=== PATIENT | female | born 1970 | race Caucasian/White ===

== ENCOUNTER 2025-01-26 08:58 | Inpatient (IN) | payer MEDICAID, SELFPAY ==
[2025-01-26] VITALS (147 sets, daily range): BP systolic 70–184; BP diastolic 48–104; PULSE 67–140; RESP 12–97; TEMP 36.6–37.1; O2SAT 89–100; BMI 50.6
--- NOTE | 2025-01-26 09:06 | XR_ITS ---
Exam: Chest AP single view Technique: AP portable upright chest single view 01/26/2025 957 am Indications: stroke alert, SOB today Findings: Normal heart size. No aspiration pneumonia No pulmonary edema. Moderate osteopenia Impression: Negative for aspiration pneumonia
--- NOTE | 2025-01-26 09:06 | EKG_ITS ---
[facility] Test Date: 2025-01-26 Pat Name: AROLDO PABON Department: Room: - Gender: Female Emergency Spill Response Technician: : 1970 Requested By: Beatris Cruz Order Number: [id number] Reading MD: Beatris Cruz Measurements Intervals [place] Rate: 80 P: 249 VA: 125 QRS: 8 QRSD: 86 T: 37 QT: 201 QTc: 232 Interpretive Statements JUNCTIONAL RHYTHM LOW QRS VOLTAGE IN PRECORDIAL LEADS [QRS DEFLECTION < 1.0 mV IN CHEST LEADS] POSSIBLE RIGHT VENTRICULAR CONDUCTION DELAY [RSR (QR) IN V1/V2] NONSPECIFIC ST & T-WAVE ABNORMALITY ABNORMAL RHYTHM ECG No previous ECG available for comparison /[id number]/S0/[id number].pdf
--- NOTE | 2025-01-26 09:06 | XR_ITS ---
Examination: CT brain head without contrast. 2-D sagittal coronal reconstructions Date and time of exam:01/26/2025 Indications Stroke alert CTDI: vol (mGy):71 DLP: (mGycm):1465 Technique: Multiple CT axial sections of the brain have been obtained, 5 mm slice thickness. Contrast has not been administered. 2-D sagittal, coronal reconstructions have been obtained Low dose protocols were performed. One or more of the following dose reduction techniques were used; automated exposure control, adjustment of the mA and/or KV according to patient size, use of iterative reconstruction technique. Findings: No significant ventricular enlargement. Intra-axial or extra-axial hemorrhage density is not seen. No mass effect or midline shift Basal cisterns are not remarkable. Fourth ventricle is midline. Cranial vault intact. Impression: Negative for acute hemorrhage, mass effect or midline shift
--- NOTE | 2025-01-26 09:06 | XR_ITS ---
Examination: CTA carotids with intravenous contrast CTA brain, head with intravenous contrast. 2-D sagittal, coronal reconstructions. 3-D reconstructions. Exam date and time: 01/26/2025 0926 hrs Indications: stroke alert today CTDI: vol (mGy) 20.8 DLP: (mGycm) 449 Technique: Multiple CTA axial brain, head carotid images post intravenous contrast injection 100 cc, [id number]. 2-D sagittal, coronal reconstructions. 3-D reconstructions, 3-D post processing including vascular maximum intensity projection images. Low dose protocols were performed. One or more of the following dose reduction techniques were used; automated exposure control, adjustment of the mA and/or KV according to patient size, use of iterative reconstruction technique. Findings: No significant carotid or vertebral artery stenoses in the neck Mildly dominant left vertebral artery. No cerebral large vessel arterial occlusions or thrombus. Impression: No significant neck arterial stenoses. No cerebral arterial large vessel occlusions or thrombus
--- NOTE | 2025-01-26 09:23 | PC.NURSE ---
PATIENT CAME IN TO ED THROUGH LOBBY FOR FEELING LIKE SHE IS IN A FOG ALL MORNING . PER PATIENT'S PARTNER SHE WAS LAST HER NORMAL SELF LAST NIGHT. PATIENT STATES SHE HAS FEELING OF WEAKNESS ON HER LEFT ARM AND SHE DOESN'T FEEL RIGHT. PATIENT WAS TAKEN TO CT SCAN RIGHT AWAY AFTER STROKE ALERT WAS INITIATED. PATIENT ALERT AND ORITNETED X4. VITALS STABLE. PATIENT HAS HISTORY OF DOUBLE MASTECTOMY FROM BREAST CANCER, AND HYPERTENSION.
[2025-01-26 09:32] LABS: Basophils # (Auto) 0.0 Thou/mm3 (0.0-0.2); Basophils % (Auto) 0 % (0-2.5); Eosinophils # (Auto) 0.0 Thou/mm3 (0.0-0.5); Eosinophils % (Auto) 0 % (0-10); Hematocrit 38.7 % (36.0-46.0); Hemoglobin 13.5 g/dL (12.0-16.0); Immature Granulocytes Auto 0.06 Thou/mm3 (0.00-0.00); Lymphocytes # (Auto) 1.3 Thou/mm3 (1.0-4.8); Lymphocytes % (Auto) 16 % (10-50); Mean Corpuscular HGB Conc 34.9 g/dl (31.0-37.0); Mean Corpuscular Hemoglobin 29.1 pg (25.0-35.0); Mean Corpuscular Volume 83 fL (80-100); Monocytes # (Auto) 0.7 Thou/mm3 (0.0-0.8); Monocytes % (Auto) 9 % (0-12); Neutrophils # (Auto) 6.1 Thou/mm3 (1.8-7.7); Neutrophils % (Auto) 75 % (37-80); Nucleated Red Blood Cell # 0.00 Thou/mm3 (0.00-0.00); Nucleated Red Blood Cell % 0 /100 WBC (0); Platelet Count 150 Thou/mm3 (140-440); RDW Standard Deviation 46.2 fL (36.4-46.3); Red Blood Count 4.64 Miln/mm3 (4.00-5.20); White Blood Count 8.2 Thou/mm3 (3.6-11.0)
[2025-01-26 09:44] LABS: INR 1.1 (0.9-1.3); Partial Thromboplastin Time 25.9 Seconds (22.0-36.0); Prothrombin Time 12.0 Seconds (9.0-12.2)
--- NOTE | 2025-01-26 09:45 | PD.TNEURO ---
Tele Neuro Consultation Consultation Date 01/26/25 Most Recent Vital Signs Last Vital Signs Pulse 93 01/26/25 09:21 Resp 22 H 01/26/25 09:15 BP 137/94 H 01/26/25 09:15 Pulse Ox 98 01/26/25 09:15 O2 Del Method Room Air 01/26/25 09:15 Laboratory-Coagulation Panel PT 12.0 Seconds (9.0-12.2) 01/26/25 09:18 INR 1.1 (0.9-1.3) 01/26/25 09:18 APTT 25.9 Seconds (22.0-36.0) 01/26/25 09:18 Consultation Narrative [facility] Patient Name:???AROLDO PABON Date of :???1970 Identification Number:??? Date of Service:???01/26/2025 09:04:08 Diagnosis:?R20.2 - Paresthesia of skin Impression: ?She reported some numbness in her left hand that she gets sometimes but not currently present. No focal deficits on exam and overall non-descript presentation. Recommend outpatient evaluation of the chronic intermittent paresthesias of her left hand. Further work up for infectious or metabolic cause of the foggy feeling per primary team. Sign Out: ? Discussed with Emergency Department Provider Advanced Imaging: CTA Head and Neck Completed. LVO:No Patient is not a candidate for LIANG Metrics: Last Known Well: 01/25/2025 23:00:00 Dispatch Time: 01/26/2025 09:04:08 Arrival Time: 01/26/2025 08:58:00 Initial Response Time: 01/26/2025 09:07:06Symptoms: foggy. Initial patient interaction: 01/26/2025 09:30:08 NIHSS Assessment Completed: 01/26/2025 09:34:39Patient is not a candidate for Thrombolytic. Thrombolytic Medical Decision: 01/26/2025 09:34:40Patient was not deemed candidate for Thrombolytic because of following reasons: LKW outside 4.[address] Head: I personally reviewed all the CT images that were available to me and it showed: no acute process Primary Provider Notified of Diagnostic Impression and Management Plan on: 01/26/2025 09:40:23 History of Present Illness:Patient is a 54 year old Female. Patient was brought by private transportation with symptoms of foggy. 54 yo F with history of HTN and breast cancer who is presenting with foggy feeling. She was staring off into space. Per her partner, she had a blank stare on her face and she was having trouble getting up and was stumbling to the bathroom. She was having trouble breathing. She would respond but more slowly. He was last normal at 23:00 before. Per patient she feels like she's in a fog. Her left keeps going numb but that has happened before. She is having some back pain. She does not feel like she is having trouble communicating but she just doesn't feel right. She just doesn't feel right. She does not have any time that she can't remember. Her baseline she has been having some trouble doing daily activities. Past Medical History: ?Hypertension Other PMH:? breast cancer Medications: No Anticoagulant use? No Antiplatelet use Reviewed EMR for current medications Allergies:? NKDA Social History: Unable To Obtain Due To Patient Status :?Patient Cannot Communicate Relevant Social History Family History: There is no family history of premature cerebrovascular disease pertinent to this consultation ROS : 14 Points Review of Systems was performed and was negative except mentioned in HPI. Past Surgical History: There Is No Surgical History Contributory To Today?s Visit Examination: BP(137/94),?Pulse(88),?Blood Glucose(121) 1A: Level of Consciousness - Alert; keenly responsive?+ 0 1B: Ask Month and Age - Both Questions Right?+ 0 1C: Blink Eyes & Squeeze Hands - Performs Both Tasks?+ 0 2: Test Horizontal Extraocular Movements - Normal?+ 0 3: Test Visual Anne - No Visual Loss?+ 0 4: Test Facial Palsy (Use Grimace if Obtunded) - Normal symmetry?+ 0 5A: Test Left Arm Motor Drift - No Drift for 10 Seconds?+ 0 5B: Test Right Arm Motor Drift - No Drift for 10 Seconds?+ 0 6A: Test Left Leg Motor Drift - No Drift for 5 Seconds?+ 0 6B: Test Right Leg Motor Drift - No Drift for 5 Seconds?+ 0 7: Test Limb Ataxia (FNF/Heel-Allen) - No Ataxia?+ 0 8: Test Sensation - Normal; No sensory loss?+ 0 9: Test Language/Aphasia - Normal; No aphasia?+ 0 10: Test Dysarthria - Normal?+ 0 11: Test Extinction/Inattention - No abnormality?+ 0 NIHSS Score:?0 Pre-Morbid Modified Rojelio Scale: 1 Points = No significant disability despite symptoms; able to carry out all usual duties and activities Spoke with :?ED MD This consult was conducted in real time using interactive audio and video technology. Patient was informed of the technology being used for this visit and agreed to proceed. Patient located in hospital and provider located at home/office setting. Patient is being evaluated for possible acute neurologic impairment and high probability of imminent or life-threatening deterioration. I spent total of 40 minutes providing care to this patient, including time for face to face visit via telemedicine, review of medical records, imaging studies and discussion of findings with providers, the patient and/or family. Dr Myla Leung [facility] For Inpatient follow-up with [facility] physician please call [facility] at . As we are not an outpatient service for any post hospital discharge needs please contact the hospital for assistance. If you have any questions for the [facility] physicians or need to reconsult for clinical or diagnostic changes please contact us via [facility] at . Signature :Alberto Leung
[2025-01-26 09:50] LABS: HCG Titer if Positive Negative
[2025-01-26 09:51] LABS: Acetaminophen < 2.0 mcg/mL (10.0-20.0); Alanine Aminotransferase 18 U/L (10-49); Albumin, Serum 3.4 gm/dL (3.5-5.0); Albumin/Globulin Ratio 1.4 (1.2-2.2); Alkaline Phosphatase 80 U/L (46-116); Anion Gap 12 (7-16); Aspartate Amino Transferase 27 U/L (0-34); BUN/Creatinine Ratio 9 Ratio (12-20); Bilirubin,Total 0.9 mg/dL (0.3-1.2); Blood Urea Nitrogen 10 mg/dL (9-23); Calcium 8.4 mg/dL (8.3-10.6); Calcium (Corrected) 8.9 mg/dL (8.5-10.1); Carbon Dioxide 29.7 mMol/L (20.0-31.0); Chloride 77 mMol/L (98-107); Creatinine (Component) 1.1 mg/dL (0.6-1.3); Globulin 2.5 gm/dL (2.3-3.5); Glucose 112 mg/dL (74-106); Magnesium 1.6 mg/dL (1.6-2.6); Osmolality,Calculated 240 (275-295); Salicylate < 3.0 mg/dL; Total Protein 5.9 gm/dL (5.7-8.2); Troponin I < 0.020 ng/mL (0.0-0.045); eGFR > 60 See Note
[2025-01-26 09:54] LABS: Potassium 2.3 mMol/L (3.4-5.1); Sodium 119 mMol/L (136-145)
--- NOTE | 2025-01-26 09:58 | PC.NURSE ---
DR PRATER AND RESIDENT MADE AWARE OF PATIENT'S CMP LAB VALUES. PATIENT HAS SODUM OF 119, AND POTASSIUM 2.3 PATIENT PLACED ON SEIZURE PRECAUTIONS
--- NOTE | 2025-01-26 10:17 | XR_ITS ---
Examination: Venous duplex lower extremity sonogram, bilateral. Date and time of exam: January 26, 2025, 1257 hrs. Indications: Leg swelling this week. Technique: Multiple sonographic images of the deep venous system have been obtained. B-mode/2-D grayscale imaging of vascular structures and Doppler spectral analysis (waveforms) and color performed Both legs are examined. Findings: Deep venous systems do not demonstrate abnormal echogenicity. All visualized deep veins exhibit compressibility. All visualized deep veins exhibit augmentation. Impression: Negative for deep vein thrombosis
[2025-01-26] MEDS: POTASSIUM CHL 10 mEq IVPB 10 MEQ/100 ML BAG 100 MEQ IV ×10 (10:20→22:35)
[2025-01-26] MEDS: SODIUM CHLORIDE 0.9% 1000 ML 1,000 ML 100 ML IV (10:20)
--- NOTE | 2025-01-26 10:20 | PD.EDNEURO ---
Neuro Symptoms Deficit-RME/HPI General Chief Complaint: Neuro Symptoms/Deficit Stated Complaint: FEEL LIKE IN A FOG UPON WAKING TODAY Time Seen by Provider: 01/26/25 09:09 Source: patient and family (partner at bedside) Arrival date/time: 01/26/25 08:58 Mode of arrival: wheelchair RME / HPI RME / HPI Narrative: Ms. Carreno is a 54-year-old female with past medical history of hypertension, suspected congestive heart failure, hypothyroidism, breast cancer status post mastectomy, chronic active smoker and hypokalemia who presented to [facility] emergency department with a chief complaint of symptoms of dizziness. Patient reports that her symptoms, she feels foggy, reported that her last known well time was yesterday evening otherwise partner at bedside complains of patient being unsteady since yesterday, he also reported that patient had a blank stare on his face and was having difficulty ambulating. Patient did endorse difficulty word finding, and mild dysarthria was noted during triage and stroke alert called. Patient also smokes daily, has extensive smoking history, reports daily alcohol use in the form of beer drinks more than 4 cans every day, reports no history of withdrawals. Drank 6 cans of beer daily Stroke alert called in emergency department, NIHSS 0 teleneurology endorsed low suspicion of CVA and recommended metabolic workup. ED labs significant for sodium 119, potassium 2.3, chloride 77. Osmolality 240 Patient's vitals on presentation, blood pressure normotensive 137/94, patient noted to have significant hypotension, lactate elevated at 2.3, patient will be started on Levophed, nephrology was consulted recommended normal saline maintenance fluid 100 cc/h, potassium replaced in the emergency department. Arterial line placed for noninvasive blood pressure monitoring. Related Data Home Medications ?Medication ?Instructions ?Recorded ?Confirmed benazepril 40 mg tablet 40 mg PO DAILY 01/27/25 01/27/25 furosemide 40 mg tablet 40 mg PO DAILY 01/27/25 01/27/25 levothyroxine 75 mcg tablet 75 mcg PO DAILY 01/27/25 01/27/25 metoprolol tartrate 50 mg tablet 50 mg PO BID 01/27/25 01/27/25 potassium chloride 8 mEq 8 meq PO DAILY 01/27/25 01/27/25 capsule,extended release Previous Rx's ?Medication ?Instructions ?Recorded gabapentin 300 mg capsule 300 mg PO HS #7 caps 01/30/25 naltrexone 50 mg tablet 50 mg PO QDAY 15 days #15 tabs 01/30/25 Allergies Allergy/AdvReac Type Severity Reaction Status Date / Time No Known Allergies Allergy Verified 01/26/25 09:01 Review of Systems Review of Systems Narrative Review of Systems: ROS: -CONSTITUTIONAL: Denies weight loss, fever and chills. Endorses dizziness. -HEENT: Denies changes in vision and hearing. -RESPIRATORY: Denies SOB and cough. -CV: Denies palpitations and Chest Pain. -GI: Denies abdominal pain, nausea, vomiting,constipation and diarrhea. -: Denies dysuria and urinary frequency. -MSK: Denies myalgia and joint pain. -SKIN: Denies rash and pruritus. -NEUROLOGICAL: Denies headache and syncope. -PSYCHIATRIC: Denies recent changes in mood. Denies anxiety and depression. Past Medical History Past Medical History Comments PMH COMMENT: PMH: Positive for hypertension, suspected congestive heart failure, hypothyroidism, breast cancer status post mastectomy and hypokalemia PSHx: Bilateral mastectomy Allergies: No known allergies Social history: -Smoking: Positive active smoker -Alcohol Use: Positive for daily alcohol use, drank 6 beers yesterday night -Illicit Drug Use: Denies Family History: No related family history ED Exam Narrative Physical exam: Physical Exam General: Awake and tired. Morbidly obese, conversational and non-toxic appearing. HEENT: Normocephalic, atraumatic, mucous membranes moist. Heart: Regular rate and rhythm, no murmurs. Lungs: Clear to auscultation with no wheezing or crackles. Limited breath sounds due to body habitus. Abdomen: Soft, obese, nondistended, nontender, positive bowel sounds. ?No guarding or rebound tenderness. Neurologic: Alert and oriented x3, no gross neurological deficit, and patient able to move all 4 extremities. Extremities: Trace bilateral lower extremity edema Skin: No rash or ecchymoses. Striae noted, excessive hair growth noted as well. Course Course Course Narrative: During the ED course patient noted to be hypotensive on manual blood pressure cuff, lactate was elevated at 2.4, variable readings on the blood pressure cuff. Patient started on Levophed, arterial line placed for closer blood pressure monitoring. Quality Measures none Orders Category Date Time Status Bedside Blood Glucose NOW Care 01/26/25 09:06 Completed COVID-19 Screening Questionnaire NOW Care 01/26/25 12:[address] Screening NOW Care 01/26/25 10:16 Completed Wheelchair Rental Clerk NOW Care 01/26/25 09:06 Completed Continuous Pulse Oximetry NOW Care 01/26/25 09:06 Completed Decision to Admit X1 Care 01/26/25 12:49 Completed EKG (ED ONLY) *Do not use* NOW Care 01/26/25 09:06 Completed Fluid restriction QDAY Care 01/26/25 09:59 Completed Wells [Urinary Catheter] QS Care 01/26/25 10:00 Completed In and Out Catheter NEEDED Care 01/26/25 09:06 Completed Insert IV NOW Care 01/26/25 09:06 Completed NIH Stroke Scale now Care 01/26/25 09:06 Completed NPO NOW Care 01/26/25 09:06 Completed Neuro Check Q4H Care 01/26/25 09:06 Completed Nurse Swallow Screen x1 Care 01/26/25 09:06 Completed Seizure precautions NOW Care 01/26/25 09:56 Completed Consult to Nephrology Stat Cons 01/26/25 10:04 Ordered Consult to Neurology / Tele-Neurology Stat Cons 01/26/25 09:[address] angio chest Stat Exams 01/26/25 10:[address] angio stroke protocol Stat Exams 01/26/25 09:[address] stroke protocol Stat Exams 01/26/25 09:06 Completed EKG (ED Only) Stat Exams 01/26/25 09:06 Draft US venous doppler LE BI Stat Exams 01/26/25 10:17 Completed XR chest 1V portable Stat Exams 01/26/25 09:06 Completed Acetaminophen Stat Lab 01/26/25 09:18 Completed Ammonia Stat Lab 01/26/25 10:22 Completed BNP [B-Type Natriuretic Peptide] Stat Lab 01/26/25 09:18 Completed CBC Stat Lab 01/26/25 09:18 Completed CK [Creatine Kinase] Stat Lab 01/26/25 09:55 Completed Comprehensive Metabolic Panel Stat Lab 01/26/25 09:18 Completed Cortisol,total,LC/MS/MS* Stat Lab 01/26/25 10:22 Received Creatinine,Random Urine Stat Lab 01/26/25 09:55 Completed Drug Screen,Urine Stat Lab 01/26/25 09:55 Completed Electrolytes, Urine Random Stat Lab 01/26/25 09:55 Completed Free T4 (Free Thyroxine) Stat Lab 01/26/25 09:55 Completed HCG Titer if Positive Stat Lab 01/26/25 09:18 Completed HCG,Qualitative Serum Stat Lab 01/26/25 09:18 Completed Lactate (Lactic Acid) Stat Lab 01/26/25 10:22 Completed Lactic Acid, 3 HR Stat Lab 01/26/25 13:39 Completed Lipid Panel Stat Lab 01/26/25 09:55 Completed Magnesium Stat Lab 01/26/25 09:18 Completed Partial Thromboplastin Time Stat Lab 01/26/25 09:18 Completed Prothrombin Time with INR Stat Lab 01/26/25 09:18 Completed Renal Function Panel Q4H Lab 01/26/25 12:47 Completed Renal Function Panel Q4H Lab 01/26/25 16:25 Completed Renal Function Panel Q4H Lab 01/26/25 20:15 Completed Renal Function Panel Q4H Lab 01/27/25 00:28 Completed Renal Function Panel Q4H Lab 01/27/25 07:53 Completed Renal Function Panel Q4H Lab 01/27/25 12:07 Completed Renal Function Panel Q4H Lab 01/27/25 18:20 Completed Renal Function Panel Q4H Lab 01/27/25 21:16 Completed Renal Function Panel Q4H Lab 01/28/25 01:46 Completed Salicylate Stat Lab 01/26/25 09:18 Completed TSH [Thyroid Stimulating Hormone] Stat Lab 01/26/25 09:55 Completed Troponin I Stat Lab 01/26/25 09:18 Completed Urea Nitrogen, Random Urine Stat Lab 01/26/25 09:55 Completed Uric Acid Stat Lab 01/26/25 09:55 Completed Urinalysis, C/S if Indicated Stat Lab 01/26/25 09:55 Completed KCL 10% Liq UDC 15 ML Med 01/26/25 10:28 Discontinued 40 meq PO X1 ONE Norepinephrine/NS 16mg/250ml [Levophed in NS 16mg/250ml Med 01/26/25 10:12 Discontinued ] 16 mg in 250 ml IV .STK-MED Norepinephrine/NS 16mg/250ml [Levophed in NS 16mg/250ml Med 01/26/25 10:10 Discontinued ] 16 mg in 250 ml IV 0.05 mcg/kg/min POTASSIUM CHL 10 mEq IVPB [Kcl Ivpb] Med 01/26/25 09:59 Discontinued 10 meq in 100 ml IV Q1H Potassium Chloride [K-Dur] Med 01/26/25 09:58 Discontinued 40 meq PO X1 ONE Sodium Chloride 0.9% 1000 ml [Ns] 1,000 ml Med 01/26/25 10:08 Discontinued IV 100 mls/hr Oxygen Delivery NOW RT 01/26/25 09:06 Completed Vital Signs Vital signs: Vital Signs Pulse Rate 83 01/26/25 09:15 Respiratory Rate 22 H 01/26/25 09:15 Blood Pressure 137/94 H 01/26/25 09:15 Pulse Oximetry (%) 98 01/26/25 09:15 Oxygen Delivery Method Room Air 01/26/25 09:15 PROCEDURES: Arterial Line Time Out Performed: Yes Size (Gauge): 20 Technique Used: guide wire technique Post-Procedure: line sutured into place and dry sterile dressing placed Patient Tolerated Procedure: well and no complications Complications: none Site: right and radial Additional Comments: PROCEDURE SUMMARY: Surgical cap, mask, and sterile gown/gloves were worn throughout the procedure. The Right wrist was prepped using chlorhexidine scrub and draped in sterile fashion using a three quarter sheet drape. The radial pulse was identified and the wrist was positioned in the usual fashion. Lidocaine used for local anesthesia. Using the Arrow Radial Arterial Line Kit, a needle was inserted into the radial artery. Arterial blood was seen to pulsate in the flash chamber. The internal guidewire was advanced easily into the radial artery. The catheter was then advanced over the wire and the needle and wire were withdrawn. The catheter was sutured in place. A sterile tape was placed over the catheter at the insertion site. The patient tolerated the procedure without any hemodynamic compromise. At the time of procedure completion, the catheter was connected to the quality assurance monitor body and calibrated. Appropriate waveform and blood pressure tracing was observed. Estimated blood loss is 2 mL. Procedure done under supervision of the attending emergency physician Dr Yennifer Suarez MD Neuro Symptoms / Deficit MDM Narrative MDM Narrative:: Patient p/w w/ weakness and transient difficulty speaking. VS and exam as listed. Stroke alert called in emergency department, NIHSS 0 teleneurology endorsed low suspicion of CVA and recommended metabolic workup. ED labs significant for sodium 119, potassium 2.3, chloride 77. Osmolality 240 Patient's vitals on presentation, blood pressure normotensive 137/94, however shortly thereafter patient noted to have significant hypotension, lactate elevated at 2.3. patient will be started on Levophed, nephrology was consulted recommended normal saline maintenance fluid 100 cc/h, potassium replaced in the emergency department given her hyponatremia. Arterial line placed for noninvasive blood pressure monitoring given her hypotension, edema, and critical state. #Symptomatic hypoosmolar hypochloremic hyponatremia #Hypokalemia DDx: Beer potomania, medication induced-Lasix/DREA/ARB Patient sodium 119,Potassium 2.3, chloride 77 on presentation, patient's symptom of dizziness and difficulty ambulating Nephrology consulted, started on maintenance fluid per nephrology recommendations, urine electrolytes and other urine studies ordered, uric acid cortisol, thyroid panel ordered Monitor renal panel every 4 hours, goal sodium correction 4-6 in 24 hours Potassium repleted, 80 mEq given, follow repeat potassium #Shock, undifferentiated #Hypotension #Elevated lactic acidosis Patient's MAP less than 65 multiple readings, arterial line placed for noninvasive blood pressure monitoring -no fever or localizing infectious symptoms. No chest pain or hx of heart disease. no trauma. Unclear source of shock at this point. - Levophed to titrate MAP greater than 65 - Follow-up lactate #Chronic intermittent paresthesias #CVA workup NIHSS 0, low suspicion of stroke per teleneurology Recommendations outpatient workup for chronic intermittent paresthesias and metabolic workup. #Daily alcohol use #Chronic active smoker Currently no concern of alcohol withdrawal, monitor closely. Case discussed with Attending Physician Dr. Yennifer Suarez MD Internal Medicine PGY-2 Disclaimer: This note was dictated by speech recognition. Minor errors in retail salesworker may be present due to voice recognition software. Patient data External records reviewed:: [facility] previous records Clinical information provided by:: patient and family Social determinants that could affect healthcare access:: alcohol use Patient has the following chronic illnesses:: hypertension, suspected congestive heart failure, hypothyroidism, breast cancer status post mastectomy, chronic active smoker, alcohol use and hypokalemia How is presenting disease/condition affected by chronic disease/condition?: exacerbated by Evaluation data The following diagnostics were reviewed and interpreted by me:: lab results, radiology exam(s) and EKG tracing(s) Lab and/or radiology exams considered but not ordered:: None Interpretation Summary: Patient CMP significant for severe hyponatremia which is symptomatic. CT scan of the head unremarkable, CTA head and neck unremarkable Medications / Prescriptions Medications or Prescriptions considered but not ordered:: None Medication administrations:: Medication Administration History Discontinued Medications Acetaminophen (Acetaminophen 500 Mg Tablet) 1,000 mg PO Q6HR PRN PRN Reason: pain 1-3 or fever >99.9 Stop: 02/26/25 18:26 Last Admin: 01/29/25 11:49 Dose: 1,000 mg Documented By: Admin: 01/28/25 11:01 Dose: 1,000 mg Documented By: TRACY Albuterol/Ipratropium (Albuterol/Ipratropium (Duoneb) Rt Deya 3 Ml Nebu) 3 ml INH Q6HRRT ROSALBA Stop: 02/25/25 18:59 Last Admin: 01/30/25 12:18 Dose: 3 ml Documented By: Admin: 01/30/25 06:33 Dose: 3 ml Documented By: Admin: 01/30/25 01:05 Dose: Not Given Documented By: PAULA Non-Admin Reason: Patient Refused Admin: 01/30/25 01:05 Dose: Not Given Documented By: PAULA Non-Admin Reason: Patient Refused Admin: 01/29/25 12:45 Dose: 3 ml Documented By: SC Admin: 01/29/25 06:51 Dose: 3 ml Documented By: SC Admin: 01/29/25 00:08 Dose: 3 ml Documented By: Admin: 01/28/25 18:41 Dose: 3 ml Documented By: Admin: 01/28/25 11:55 Dose: 3 ml Documented By: Admin: 01/28/25 06:11 Dose: 3 ml Documented By: Admin: 01/28/25 00:55 Dose: 3 ml Documented By: Admin: 01/27/25 19:13 Dose: 3 ml Documented By: Admin: 01/27/25 12:38 Dose: 3 ml Documented By: Admin: 01/27/25 06:43 Dose: 3 ml Documented By: Admin: 01/27/25 01:16 Dose: 3 ml Documented By: Admin: 01/26/25 19:12 Dose: 3 ml Documented By: PAULA Chlordiazepoxide HCl (Chlordiazepoxide Hcl 25 Mg Capsule) 25 mg PO Q8HR ROSALBA Stop: 02/01/25 16:59 Last Admin: 01/30/25 05:29 Dose: 25 mg Documented By: Admin: 01/29/25 20:59 Dose: 25 mg Documented By: Admin: 01/29/25 13:23 Dose: 25 mg Documented By: Admin: 01/29/25 05:49 Dose: 25 mg Documented By: Admin: 01/28/25 23:06 Dose: 25 mg Documented By: Admin: 01/28/25 13:28 Dose: 25 mg Documented By: Admin: 01/28/25 05:58 Dose: 25 mg Documented By: Admin: 01/27/25 21:27 Dose: 25 mg Documented By: Admin: 01/27/25 16:16 Dose: 25 mg Documented By: KERVIN Chlordiazepoxide HCl (Chlordiazepoxide Hcl 25 Mg Capsule) 25 mg PO BID ROSALBA Stop: 02/04/25 20:59 Desmopressin Acetate (Desmopressin Acetate 4 Mcg/Ml Vial) 4 mcg IV X1 ONE Stop: 01/26/25 14:16 Last Admin: 01/26/25 15:39 Dose: 4 mcg Documented By: JASWINDER Comments: Given late 2/T being ordered in the ED. Diazepam (Diazepam Inj 5 Mg/Ml Vial 2 Ml) 10 mg IVP Q1HR PRN PRN Reason: CIWA Stop: 01/31/25 14:00 Diazepam (Diazepam Inj 5 Mg/Ml Vial 2 Ml) 5 mg IVP Q2HR PRN PRN Reason: CIWA SCORE 14-19 Stop: 01/31/25 14:00 Last Admin: 01/27/25 13:16 Dose: 5 mg Documented By: MR(2) Admin: 01/27/25 10:47 Dose: 5 mg Documented By: Admin: 01/27/25 08:36 Dose: 5 mg Documented By: Admin: 01/27/25 04:56 Dose: 5 mg Documented By: Admin: 01/27/25 01:26 Dose: 5 mg Documented By: Admin: 01/26/25 23:00 Dose: 5 mg Documented By: NYLA Diazepam (Diazepam Inj 5 Mg/Ml Vial 2 Ml) 15 mg IVP Q15M PRN PRN Reason: RASS GREATER OR EQUAL TO +2 Stop: 01/31/25 14:00 Diazepam (Diazepam Inj 5 Mg/Ml Vial 2 Ml) 2.5 mg IVP Q2HR PRN PRN Reason: CIWA SCORE 8 to 13 Stop: 01/31/25 14:00 Diazepam (Diazepam Inj 5 Mg/Ml Vial 2 Ml) 5 mg IVP Q2HR PRN PRN Reason: CIWA SCORE 14-19 Stop: 02/01/25 15:50 Diazepam (Diazepam Inj 5 Mg/Ml Vial 2 Ml) 2.5 mg IVP Q2HR PRN PRN Reason: CIWA SCORE 8 to 13 Stop: 01/31/25 14:00 Last Admin: 01/29/25 09:17 Dose: 2.5 mg Documented By: Admin: 01/29/25 06:22 Dose: 2.5 mg Documented By: Admin: 01/29/25 01:12 Dose: 2.5 mg Documented By: Admin: 01/28/25 23:06 Dose: 2.5 mg Documented By: Admin: 01/28/25 20:22 Dose: 2.5 mg Documented By: MICHAEL Comments: Admin: 01/28/25 15:24 Dose: 2.5 mg Documented By: Admin: 01/28/25 11:06 Dose: 2.5 mg Documented By: Admin: 01/28/25 06:18 Dose: 2.5 mg Documented By: Admin: 01/27/25 23:17 Dose: 2.5 mg Documented By: Admin: 01/27/25 19:41 Dose: 2.5 mg Documented By: Admin: 01/27/25 16:16 Dose: 2.5 mg Documented By: KERVIN Diphenhydramine HCl (Diphenhydramine 25 Mg Capsule) 25 mg PO X1 ONE Stop: 01/27/25 23:02 Last Admin: 01/27/25 23:24 Dose: Not Given Documented By: ALFREDO Non-Admin Reason: pt refused Enoxaparin Sodium (Enoxaparin Sod Inj 40 Mg/0.4 Ml Syringe) 40 mg SC QDAY ROSALBA Stop: 02/09/25 13:59 Last Admin: 01/27/25 08:20 Dose: 40 mg Documented By: Admin: 01/26/25 14:28 Dose: 40 mg Documented By: VL Enoxaparin Sodium (Enoxaparin Sod Inj 40 Mg/0.4 Ml Syringe) 40 mg SC BID ROSALBA Stop: 02/10/25 20:59 Last Admin: 01/30/25 08:28 Dose: 40 mg Documented By: Admin: 01/29/25 20:59 Dose: 40 mg Documented By: Admin: 01/29/25 08:38 Dose: 40 mg Documented By: Admin: 01/28/25 23:08 Dose: 40 mg Documented By: Admin: 01/28/25 08:38 Dose: 40 mg Documented By: Admin: 01/27/25 21:27 Dose: 40 mg Documented By: ALFREDO Gabapentin (Gabapentin 100 Mg Capsule) 100 mg PO TID PRN PRN Reason: Neuropathic pain Stop: 02/28/25 15:44 Last Admin: 01/29/25 17:27 Dose: 100 mg Documented By: Guaifenesin (Guaifenesin Syrup 200 Mg/10 Ml Udc) 200 mg PO QID ROSALBA; Protocol Stop: 02/26/25 11:59 Last Admin: 01/30/25 12:13 Dose: Not Given Documented By: JAKI Non-Admin Reason: Patient Refused Admin: 01/30/25 05:29 Dose: 200 mg Documented By: Admin: 01/29/25 20:58 Dose: 200 mg Documented By: Admin: 01/29/25 17:27 Dose: 200 mg Documented By: Admin: 01/29/25 11:37 Dose: 200 mg Documented By: Admin: 01/29/25 05:49 Dose: 200 mg Documented By: Admin: 01/28/25 23:06 Dose: 200 mg Documented By: Admin: 01/28/25 16:40 Dose: 200 mg Documented By: Admin: 01/28/25 11:02 Dose: 200 mg Documented By: Admin: 01/28/25 05:57 Dose: 200 mg Documented By: Admin: 01/27/25 21:27 Dose: 200 mg Documented By: Admin: 01/27/25 16:16 Dose: 200 mg Documented By: Admin: 01/27/25 12:03 Dose: 200 mg Documented By: GE Potassium Chloride (Kcl Ivpb) 10 meq in 100 mls @ 100 mls/hr IV Q1H ROSALBA Stop: 01/26/25 13:58 Last Infusion: 01/27/25 11:35 Dose: Infused Documented By: Admin: 01/26/25 14:28 Dose: 100 mls/hr Documented By: Infusion: 01/26/25 14:00 Dose: Infused Documented By: Admin: 01/26/25 13:00 Dose: 100 mls/hr Documented By: Infusion: 01/26/25 12:53 Dose: Infused Documented By: Admin: 01/26/25 11:53 Dose: 100 mls/hr Documented By: Infusion: 01/26/25 11:20 Dose: Infused Documented By: Admin: 01/26/25 10:20 Dose: 100 mls/hr Documented By: VL Sodium Chloride (Ns) 1,000 mls @ 100 mls/hr IV .Q10H ROSALBA Stop: 02/25/25 10:07 Last Infusion: 01/27/25 11:35 Dose: Infused Documented By: Admin: 01/26/25 10:20 Dose: 100 mls/hr Documented By: VL Norepinephrine Bitartrate (Levophed In Ns 16mg/250ml) 16 mg in 250 mls @ 5.89 mls/hr IV .Q24H PRN; Protocol PRN Reason: PER protocol Stop: 02/25/25 10:09 Last Titration: 01/27/25 10:35 Dose: 0 mcg/kg/min, 0 mls/hr Documented By: Titration: 01/27/25 10:00 Dose: 0.01 mcg/kg/min, 1.178 mls/hr Documented By: Titration: 01/27/25 09:00 Dose: 0.01 mcg/kg/min, 1.178 mls/hr Documented By: Titration: 01/27/25 08:00 Dose: 0.03 mcg/kg/min, 3.534 mls/hr Documented By: Titration: 01/27/25 07:20 Dose: 0.03 mcg/kg/min, 3.534 mls/hr Documented By: Titration: 01/27/25 07:00 Dose: 0.05 mcg/kg/min, 5.89 mls/hr Documented By: Titration: 01/27/25 06:18 Dose: 0.05 mcg/kg/min, 5.89 mls/hr Documented By: Titration: 01/27/25 06:00 Dose: 0.03 mcg/kg/min, 3.534 mls/hr Documented By: Titration: 01/27/25 05:00 Dose: 0.03 mcg/kg/min, 3.534 mls/hr Documented By: Titration: 01/27/25 04:58 Dose: 0.03 mcg/kg/min, 3.534 mls/hr Documented By: Titration: 01/27/25 04:00 Dose: 0.05 mcg/kg/min, 5.89 mls/hr Documented By: Titration: 01/27/25 03:00 Dose: 0.05 mcg/kg/min, 5.89 mls/hr Documented By: Titration: 01/27/25 02:00 Dose: 0.05 mcg/kg/min, 5.89 mls/hr Documented By: Titration: 01/27/25 01:00 Dose: 0.05 mcg/kg/min, 5.89 mls/hr Documented By: Titration: 01/27/25 00:00 Dose: 0.05 mcg/kg/min, 5.89 mls/hr Documented By: Titration: 01/26/25 23:00 Dose: 0.05 mcg/kg/min, 5.89 mls/hr Documented By: Titration: 01/26/25 22:00 Dose: 0.05 mcg/kg/min, 5.89 mls/hr Documented By: Titration: 01/26/25 21:00 Dose: 0.05 mcg/kg/min, 5.89 mls/hr Documented By: Titration: 01/26/25 20:00 Dose: 0.05 mcg/kg/min, 5.89 mls/hr Documented By: Titration: 01/26/25 19:00 Dose: 0.05 mcg/kg/min, 5.89 mls/hr Documented By: Titration: 01/26/25 18:00 Dose: 0.03 mcg/kg/min, 3.534 mls/hr Documented By: Titration: 01/26/25 17:00 Dose: 0.03 mcg/kg/min, 3.534 mls/hr Documented By: Titration: 01/26/25 16:00 Dose: 0.03 mcg/kg/min, 3.534 mls/hr Documented By: Titration: 01/26/25 15:30 Dose: 0.03 mcg/kg/min, 3.534 mls/hr Documented By: Titration: 01/26/25 15:00 Dose: 0.05 mcg/kg/min, 5.89 mls/hr Documented By: Titration: 01/26/25 14:55 Dose: 0.05 mcg/kg/min, 5.89 mls/hr Documented By: Titration: 01/26/25 12:55 Dose: 0.07 mcg/kg/min, 8.245 mls/hr Documented By: Titration: 01/26/25 12:50 Dose: 0.07 mcg/kg/min, 8.245 mls/hr Documented By: Admin: 01/26/25 12:45 Dose: 0.05 mcg/kg/min, 5.89 mls/hr Documented By: VL Norepinephrine Bitartrate (Levophed In Ns 16mg/250ml) Confirm Administered Dose 16 mg in 250 mls @ ud IV .STK-MED ONE Stop: 01/26/25 10:13 Last Admin: 01/26/25 10:56 Dose: Not Given Documented By: VL Non-Admin Reason: Duplicate Medication on eMAR Sodium Chloride 500 ml/ IV (Miscellaneous Supplies) 500 mls @ 50 mls/hr IV X1 ONE Stop: 01/27/25 00:32 Last Infusion: 01/27/25 11:35 Dose: Infused Documented By: Admin: 01/26/25 15:39 Dose: 50 mls/hr Documented By: JASWINDER Comments: Given late 2/T being ordered in the ED. Potassium Chloride (Kcl Ivpb) 10 meq in 100 mls @ 100 mls/hr IV Q1H ROSALBA Stop: 01/26/25 23:05 Last Infusion: 01/27/25 11:35 Dose: Infused Documented By: Admin: 01/26/25 22:35 Dose: 100 mls/hr Documented By: Infusion: 01/26/25 22:18 Dose: Infused Documented By: Admin: 01/26/25 21:18 Dose: 100 mls/hr Documented By: Infusion: 01/26/25 21:11 Dose: Infused Documented By: Admin: 01/26/25 20:11 Dose: 100 mls/hr Documented By: Infusion: 01/26/25 20:08 Dose: Infused Documented By: Admin: 01/26/25 19:08 Dose: 100 mls/hr Documented By: Infusion: 01/26/25 19:08 Dose: Infused Documented By: Admin: 01/26/25 18:08 Dose: 100 mls/hr Documented By: Infusion: 01/26/25 18:08 Dose: Infused Documented By: Admin: 01/26/25 17:16 Dose: 100 mls/hr Documented By: JASWINDER Magnesium Sulfate (Magnesium Sulfate Ivpb) 2 gm in 50 mls @ 25 mls/hr IV X1 ONE Stop: 01/26/25 19:08 Last Infusion: 01/27/25 11:35 Dose: Infused Documented By: Admin: 01/26/25 17:16 Dose: 25 mls/hr Documented By: JASWINDER Magnesium Sulfate (Magnesium Sulfate Ivpb) 4 gm in 50 mls @ 12.5 mls/hr IV X1 ONE Stop: 01/27/25 00:23 Last Infusion: 01/27/25 11:35 Dose: Infused Documented By: Admin: 01/26/25 21:18 Dose: 12.5 mls/hr Documented By: NYLA Thiamine HCl 500 mg/ Sodium (Chloride) 105 mls @ 210 mls/hr IV TID ROSALBA Stop: 01/29/25 08:44 Last Admin: 01/29/25 05:49 Dose: 210 mls/hr Documented By: Infusion: 01/28/25 23:37 Dose: Infused Documented By: [email or web address] Admin: 01/28/25 23:07 Dose: 210 mls/hr Documented By: [email or web address] Infusion: 01/28/25 14:56 Dose: Infused Documented By: Admin: 01/28/25 14:26 Dose: 210 mls/hr Documented By: Infusion: 01/28/25 06:27 Dose: Infused Documented By: Admin: 01/28/25 05:57 Dose: 210 mls/hr Documented By: Infusion: 01/27/25 21:58 Dose: Infused Documented By: Admin: 01/27/25 21:28 Dose: 210 mls/hr Documented By: Infusion: 01/27/25 14:17 Dose: Infused Documented By: Admin: 01/27/25 13:47 Dose: 210 mls/hr Documented By: Infusion: 01/27/25 11:35 Dose: Infused Documented By: Admin: 01/27/25 09:13 Dose: 210 mls/hr Documented By: LUCIE Dextrose/Sodium Chloride (D5-1/2ns) 1,000 mls @ 999 mls/hr IV X1 ONE Stop: 01/27/25 10:00 Last Infusion: 01/27/25 11:35 Dose: Infused Documented By: Admin: 01/27/25 09:15 Dose: 999 mls/hr Documented By: LUCIE Potassium Phosphate (Pot Phos 15 Mmol In Ns 250 Ml) 15 mmol in 250 mls @ 62.5 mls/hr IV Q4H ROSALBA Stop: 01/27/25 18:21 Last Admin: 01/27/25 14:42 Dose: 62.5 mls/hr Documented By: Infusion: 01/27/25 14:42 Dose: Infused Documented By: Admin: 01/27/25 10:48 Dose: 62.5 mls/hr Documented By: LUCIE Lactated Ringer's (Lactated Ringers) 1,000 mls @ 999 mls/hr IV .Q1H1M ONE Stop: 01/27/25 14:34 Last Admin: 01/27/25 13:46 Dose: 999 mls/hr Documented By: LUCIE Magnesium Sulfate (Magnesium Sulfate Ivpb) 4 gm in 50 mls @ 12.5 mls/hr IV X1 ONE Stop: 01/29/25 12:48 Last Admin: 01/29/25 10:10 Dose: 12.5 mls/hr Documented By: MR Lorazepam (Lorazepam 0.5 Mg Tablet) 1 mg PO Q4HR PRN PRN Reason: CIWA SCORE 7-11 Stop: 01/31/25 14:00 Last Admin: 01/27/25 07:30 Dose: 1 mg Documented By: Admin: 01/26/25 19:35 Dose: 1 mg Documented By: NYLA Lorazepam (Lorazepam 0.5 Mg Tablet) 0.5 mg PO Q4HR PRN PRN Reason: CIWA 5-9 Stop: 02/03/25 10:28 Last Admin: 01/30/25 09:37 Dose: 0.5 mg Documented By: Admin: 01/30/25 05:29 Dose: 0.5 mg Documented By: Admin: 01/30/25 01:41 Dose: 0.5 mg Documented By: Admin: 01/29/25 11:49 Dose: 0.5 mg Documented By: MR Lorazepam (Lorazepam 0.5 Mg Tablet) 1 mg PO Q4HR PRN PRN Reason: 03-06 Stop: 02/03/25 10:28 Last Admin: 01/29/25 15:42 Dose: 1 mg Documented By: MR Lorazepam (Lorazepam 0.5 Mg Tablet) 2 mg PO Q4HR PRN PRN Reason: Stop: 02/03/25 10:28 Melatonin (Melatonin 3 Mg Tablet) 6 mg PO X1 ONE Stop: 01/27/25 23:28 Last Admin: 01/27/25 23:34 Dose: 6 mg Documented By: ALFREDO Melatonin (Melatonin 3 Mg Tablet) 6 mg PO X1 ONE Stop: 01/28/25 22:48 Last Admin: 01/28/25 23:08 Dose: 6 mg Documented By: MICHAEL Nicotine (Nicotine Patch 21 Mg/24 Hr Patch.Td24) 21 mg TOP QDAY ROSALBA Stop: 02/25/25 17:29 Last Admin: 01/30/25 08:27 Dose: 21 mg Documented By: Admin: 01/29/25 08:38 Dose: 21 mg Documented By: Admin: 01/28/25 08:38 Dose: 21 mg Documented By: Admin: 01/27/25 08:21 Dose: 21 mg Documented By: Admin: 01/26/25 17:36 Dose: 21 mg Documented By: JASWINDER Ondansetron HCl (Ondansetron Inj 2 Mg/Ml Inj 2 Ml) 4 mg IVP Q6HR PRN; Protocol PRN Reason: NAUSEA OR VOMITING Stop: 02/28/25 08:48 Last Admin: 01/29/25 09:17 Dose: 4 mg Documented By: MR Patiromer (Patiromer Calcium 8.4 Gm Packet) 8.4 gm PO X1 ONE Stop: 01/30/25 07:11 Patiromer (Patiromer Calcium 8.4 Gm Packet) 8.4 gm PO X1 ONE Stop: 01/30/25 08:02 Last Admin: 01/30/25 08:28 Dose: 8.4 gm Documented By: WG Potassium Chloride (Potassium Chloride 20 Meq Tabcr) 40 meq PO X1 ONE Stop: 01/26/25 09:59 Last Admin: 01/26/25 10:58 Dose: Not Given Documented By: VL Non-Admin Reason: Cancelled by Provider Potassium Chloride (Potassium Chloride 10% 20 Meq/15 Ml Udc) 40 meq PO X1 ONE Stop: 01/26/25 10:29 Last Admin: 01/26/25 10:49 Dose: 40 meq Documented By: EF Potassium Chloride (Potassium Chloride 20 Meq Tabcr) 40 meq PO X1 ONE Stop: 01/26/25 19:29 Last Admin: 01/26/25 20:21 Dose: Not Given Documented By: BB Non-Admin Reason: Unable to Swallow Potassium Chloride (Potassium Chloride 10% 20 Meq/15 Ml Udc) 40 meq GT X1 ONE Stop: 01/26/25 20:22 Last Admin: 01/26/25 21:30 Dose: 40 meq Documented By: BB Potassium Chloride (Potassium Chloride 10% 20 Meq/15 Ml Udc) 40 meq PO X1 ONE Stop: 01/27/25 08:15 Last Admin: 01/27/25 08:41 Dose: 40 meq Documented By: GE Potassium Chloride (Potassium Chloride 20 Meq Tabcr) 40 meq PO BIDWM ROSALBA Stop: 02/28/25 17:29 Last Admin: 01/29/25 17:27 Dose: 40 meq Documented By: MR Potassium Phos/Sodium Phos (Naph,[facility] Mbdb 1 Packet (1.5 Gm)) 1 packet PO X1 ONE Stop: 01/27/25 13:35 Last Admin: 01/27/25 13:47 Dose: 1 packet Documented By: GE Potassium Phos/Sodium Phos (Naph,[facility] Mbdb 1 Packet (1.5 Gm)) 2 packet PO X1 ONE Stop: 01/27/25 18:32 Last Admin: 01/27/25 21:27 Dose: 2 packet Documented By: SS Thiamine HCl (Thiamine Inj 100 Mg/Ml Vial 2 Ml) 500 mg IVP TID [facility] Stop: 02/26/25 08:29 Last Admin: 01/27/25 15:12 Dose: Not Given Documented By: DL Non-Admin Reason: Discontinued As Above Consultations Consultation(s) initiated? (list below): Yes Consultation #1 (Physician, Specialty, Details): Dr. Mesa, label tacker, symptomatic hypoosmolar euvolemic hyponatremia Nephrology recommends maintenance fluid NS 100 cc/h, urine electrolytes urine creatinine and BUN, uric acid, thyroid panel, cortisol. Renal panel every 4 hours. Time: 10:05 Diagnosis Neuro Differential Diagnosis: other Most likely diagnosis given after review of the tests above:: Patient's dizziness is secondary to severe hyponatremia which is symptomatic. Admission Indicated Admission indicated?: indicated Explain why admission is indicated or not indicated:: Patient will be admitted to intensive care unit as patient is in shock, undifferentiated requiring vasopressors. Fluid boluses avoided as patient is symptomatically hyponatremic for rapid correction. Admission Request Was there a request for admission?: Yes Admission Attestation Admission request attestation: Discussed case with [] from Hospitalist service regarding admission. Discussed patients ED course, exam findings, labs, and radiology results. The Hospitalist [agrees,declines] to accept the patient for admission. Disposition Plan Disposition Plan: Admit Critical Care Time Critical Care Time Critical Care Time: Yes Total Critical Care Time (min.): 80 Attestation: ?I spent 80 minutes of critical care time with this patient not including reportable procedures. There was an acute impairment of an organ system with a high probability of imminent or life threatening deterioration in the patient's condition. Interventions and changes required in the course of therapy are located in the chart. Time involved was spent in direct patient care, reviewing ancillary data, old records, consulting with decision makers, EMS, other doctors, giving orders and documenting. Discharge Plan Plan Patient Disposition: Admit Acute Care w/in Hospital Problem List Clinical Impression: Acute hyponatremia
[2025-01-26 10:25] LABS: Collection Type, Urine Clean Catch
[2025-01-26 10:29] LABS: Lactate (Lactic Acid) 2.3 mMol/L (0.4-2.0)
[2025-01-26 10:38] LABS: HCG,Qualitative Serum Negative
[2025-01-26 10:39] LABS: B-Type Natriuretic Peptide 46 pg/mL (0-100)
[2025-01-26] MEDS: POTASSIUM CHLORIDE 10% 20 MEQ/15 ML UDC 40 MEQ PO (10:49)
[2025-01-26 10:52] LABS: Ammonia < 10 uMol/L (11-32)
--- NOTE | 2025-01-26 11:04 | PC.NURSE ---
PATIENT'S BLOOD PRESSURE FLUCTUATING. PER RESIDENT BECKY AND DR. PRATER PATIENT WILL NEED ARTERIAL LINE AND POSSIBLY NEED TO START LEVOPHED DRIP. PATIENT MADE AWARE OF PLAN OF CARE, PATIENT IN AGREEMET WITH PLAN
[2025-01-26 11:10] LABS: Bacteria,Urine Rare; Bilirubin,Urine Negative (Negative); Blood,Urine Negative (Negative); Clarity,Urine Clear (Clear/Hazy); Color,Urine Yellow (Lt Yel-Yel); Culture Indicated,Urine Not Indicated; Glucose, Urine Negative (Negative); Hyaline Casts,Urine < 1 /hpf (0-1); Ketones,Urine Negative (Negative); Leukocyte Esterase,Urine Positive (Negative); Nitrite,Urine Negative (Negative); PH,Urine 5.5 (5.0-7.0); Protein,Urine Negative (Neg - Trace); RBC,Urine 4 /hpf (0-3); Specific Gravity,Urine 1.031 (1.001-1.035); Squamous Epithelial Cell,Urine < 1 /hpf (0-5); Urobilinogen,Urine 2.0 mg/dL (0.0-1.0); WBC,Urine 5 /hpf (0-5)
--- NOTE | 2025-01-26 11:23 | PC.NURSE ---
CONSENT SIGNED AND PATIENT AWARE OF PLAN FOR ARTERIAL LINE PLACEMENT TO RIGHT RADIAL ARTERY. DR. PRATER AND RESIDENT BECKY IN ROOM FOR PROCEDURE.
[2025-01-26 11:25] LABS: Amphetamine/Methamp Scrn,U Negative (Negative); Barbiturate Screen,Urine Negative (Negative); Benzodiazepines Screen,Urine Negative (Negative); Benzoylecgonine Screen, Ur Negative (Negative); Fentanyl Screen,Urine Negative (Negative); Opiate Screen,Urine Negative (Negative); THC Screen,Urine Negative (Negative)
[2025-01-26 11:27] LABS: Chloride,Urine Random < 20.0 mMol/L (55.0-125.0); Creatinine,Random Urine 110 mg/dL (30-125); Potassium,Urine Random 20 mMol/L (12-62); Sodium,Urine Random < 15.0 mMol/L (20.0-110.0); Urea Nitrogen, Random Urine 145.0 mg/dL (350.0-1000.0)
[2025-01-26] MEDS: Norepinephrine/NS 16mg/250ml 16 MG/250 ML BAG 5.89 MG IV (12:45)
[2025-01-26 13:00] LABS: Cardiac Risk Estimate 4.6 RATIO (3.7-5.6); Cholesterol 119 mg/dL (132-200); Creatine Kinase 115 U/L (34-171); Free T4 (Free Thyroxine) 1.40 ng/dL (0.89-1.76); HDL Cholesterol 26 mg/dL (40-60); LDL Cholesterol,Calculated 69 mg/dL (0-130); Thyroid Stimulating Hormone 4.92 uIU/mL (0.55-4.78); Triglycerides 122 mg/dL (30-150)
[2025-01-26 13:15] LABS: Uric Acid 8.0 mg/dL (3.1-7.8)
[2025-01-26 13:26] LABS: Reflex Lactate? Y
[2025-01-26 13:47] LABS: Lactic Acid, 3 HR 1.5 mMol/L (0.4-2.0)
[2025-01-26 13:57] LABS: Anion Gap 11 (7-16); Calcium 8.2 mg/dL (8.3-10.6); Carbon Dioxide 28.8 mMol/L (20.0-31.0); Chloride 79 mMol/L (98-107); Potassium 3.0 mMol/L (3.4-5.1)
--- NOTE | 2025-01-26 13:58 | ECHO_ITS ---
Transthoracic Echo Report Ht (in): 62 Wt (lb): 277 Exam Location: Echo Lab Status: Emergency Gis Software Developer: Kristina Narayan Indications: Procedure Performed: BP: 132 / 104 HR: MEASUREMENTS (Male / Female) Normal Values 2D ECHO LV Diastolic Diameter PLAX 3.7 cm 4.2 - 5.9 / 3.9 - 5.3 cm LV Systolic Diameter PLAX 2.7 cm IVS Diastolic Thickness 0.9 cm 0.6 - 1.0 / 0.6 - 0.9 cm LVPW Diastolic Thickness 1.1 cm 0.6 - 1.0 / 0.6 - 0.9 cm LV Relative Wall Thickness 0.5 LVOT Diameter 1.7 cm Aortic Root Diameter 3.4 cm LV Ejection Fraction MOD BP 47.9 % >= 55 % LV Ejection Fraction MOD 4C 50.5 % LV Ejection Fraction 4C AL 49.6 % LV Ejection Fraction MOD 2C 45.4 % LV Ejection Fraction 2C AL 43.4 % LA Volume Index 11.1 cm?/m? 16 - 28 cm?/m? DOPPLER AV Peak Velocity 201.0 cm/s AV Peak Gradient 16.2 mmHg AV Mean Gradient 8.0 mmHg AV Velocity Time Integral 33.9 cm LVOT Peak Velocity 165.0 cm/s LVOT Peak Gradient 10.9 mmHg LVOT Velocity Time Integral 28.1 cm AV Area Cont Eq vti 1.9 cm? AV Area Cont Eq pk 1.9 cm? MV Area PHT 5.5 cm? MR Peak Velocity 319.0 cm/s MR Peak Gradient 40.7 mmHg Mitral E Point Velocity 79.5 cm/s Mitral A Point Velocity 108.0 cm/s Mitral E to A Ratio 0.7 LV E' Lateral Velocity 13.9 cm/s Mitral E to LV E' Lateral Ratio 5.7 LV E' Septal Velocity 8.2 cm/s Mitral E to LV E' Septal Ratio 9.7 FINDINGS Left Ventricle Normal left ventricular size, wall thickness, systolic function with no obvious regional wall motion abnormalities. The ejection fraction is visually estimated at 55-60 %. There is grade I diastolic dysfunction of the left ventricle (impaired relaxation pattern). Right Ventricle The right ventricle is normal in size and systolic function. Left Atrium The left atrium is normal by two-dimensional, color flow and Doppler imaging with no structural abnormalities, no thrombus formation present. Right Atrium The right atrium is normal by two-dimensional imaging, color flow and Doppler imaging with no structural abnormalities, no thrombus formation present. Atrial Septum The interatrial septum appears normal with no evidence of a shunt. Aorta The aorta is normal by two-dimensional, color flow and Doppler interrogation. Mitral Valve The mitral valve is normal by two-dimensional, color flow and Doppler interrogation. Mild mitral regurgitation. Aortic Valve The aortic valve is trileaflet and normal by two-dimensional, color flow and Doppler interrogation. There is no significant aortic valve regurgitation. Tricuspid Valve The tricuspid valve is normal by two-dimensional, color flow and Doppler interrogation. There is no significant tricuspid valve regurgitation. Pulmonic Valve The pulmonic valve is not well visualized. There is no significant pulmonic valve regurgitation. Vessels Inferior vena cava not well visualized. Pericardium The pericardium is normal by two-dimensional imaging. There is no significant pericardial effusion. CONCLUSIONS Indication: EF assessment Normal LV size and wall thickness,estimated EF at 55-60 %. There is grade I diastolic dysfunction. The RV is normal in size and systolic function. Mild MR. Trace TR. Jenn Bonner (Electronically Signed) Final Date: 28 January 2025 09:18
[2025-01-26 14:00] LABS: Albumin, Serum 3.3 gm/dL (3.5-5.0); BUN/Creatinine Ratio 9 Ratio (12-20); Blood Urea Nitrogen 9 mg/dL (9-23); Calcium (Corrected) 8.8 mg/dL (8.5-10.1); Creatinine (Component) 1.0 mg/dL (0.6-1.3); Estimated Creatinine Clearance 82.5 mL/min (>60); Glucose 115 mg/dL (74-106); Osmolality,Calculated 240 (275-295); Phosphorous 4.0 mg/dL (2.4-5.1); eGFR > 60 See Note
[2025-01-26 14:20] LABS: Sodium 119 mMol/L (136-145)
[2025-01-26] MEDS: ENOXAPARIN SOD INJ 40 MG/0.4 ML SYRINGE SC (14:28)
--- NOTE | 2025-01-26 14:28 | ESHP_ITS ---
Documentation for date of: 01/26/25 [facility] History of Present Illness History of present illness: Zari Carreno is a 54-year-old F with a PMH of hypertension, suspected congestive heart failure, hypothyroidism, breast cancer status post bilateral- mastectomy, and significant ongoing smoking history who presented to the [facility] ED with a chief complaint of feeling foggy and just out of it and being unable to urinate. Patient reports that her current symptoms started last night and that her fogginess in particular has worsened since waking up this morning at 6 AM. She denies ever having a similar prior episode. She also complains of her hands and feet falling asleep intermittently but says that this has been an ongoing occurrence for her. Per ED note, patient's male partner reports that patient has also been unsteady with difficulty ambulating since yesterday and has had episodes of having a blank stare on their face. In the ED, vitals showed: BP 137/94 HR 83 RR 22 Temp 98.0 SpO2 98% on room air ED Course: CBC and coagulation panel were within normal limits. ABG showed alkalotic pH 7.45, normal pCO2 36, low PaO2 68, high HCO3 31, normal O2 saturation 95%, and high base excess 8. CMP showed severely low sodium 119, severely low potassium 2.3, severely low chloride 77, normal CO2 29.7, normal anion gap 12, low calculated osmolality 240, high lactic acid 2.3, high uric acid 8.0, borderline low magnesium 1.6, high TSH 4.92, normal free T4 1.40, and negative qualitative hCG. UA showed rare urine bacteria, urine specific gravity 1.031, and positive leukocyte esterase. It also showed normal random creatinine 110, low random sodium <15.0, normal random potassium 20, low random chloride <20.0, and low random urea nitrogen 145.0. UDS was negative. Imaging: Chest x-ray was negative for aspiration pneumonia. Head CT was negative for acute hemorrhage, mass effect, or midline shift. Head/neck CTA showed no significant neck arterial stenoses, no cerebral arterial large vessel occlusions, or thrombus. EKG showed junctional rhythm with low QRS voltage in precordial leads, possible right ventricular conduction delay, and nonspecific ST and T wave abnormality with QTc 232. Venous Doppler study was negative for deep vein thrombosis. In the ED, patient was given IV potassium chloride 10 mEq x5, 1 L IV NS maintenance fluid at 100 mL/h, p.o. potassium chloride 40 mEq, IV Levophed at 0.05 mcg/kg/min, SC enoxaparin 40 mg, IV desmopressin 4 mcg, 0.5 L IV NS maintenance fluid at 50 mL/h, IV magnesium sulfate 2 g, and topical nicotine patch. A stroke alert was called after patient was noticed to have dysarthria on exam and teleneurology was consulted. Patient's NIHSS score was 0 and teleneurology endorsed low suspicion of an acute infarct, recommending the pursuit of a metabolic workup instead. However, patient, whose blood pressure had been normotensive 137/94 upon admission, began having significant hypotension in the setting of elevated lactate 2.3, prompting her to be started on Levophed. Nephrology was consulted and they recommended NS maintenance fluid at 100 mL/h. Additionally, patient had an arterial line placed for noninvasive blood pressure monitoring along with repletion of her potassium. Patient was admitted for the work-up and management of undifferentiated shock requiring pressor support in the setting of severe hypoosmolar hyponatremia, severe hypokalemia, and severe hypochloremia. Review of Systems Review of Systems Narrative Review of Systems: CONSTITUTIONAL: Endorses dizziness ( fogginess ). Denies weight loss, fever and chills. HEENT: Denies changes in vision and hearing. RESPIRATORY: Endorses exertional shortness of breath. Denies new acute cough (endorses chronic dry cough she thinks is due to smoking). CV: Denies palpitations and Chest Pain. GI: Denies abdominal pain, nausea, vomiting, constipation and diarrhea. : Endorses difficulty urinating. Denies dysuria and urinary frequency. MSK: Denies myalgia and joint pain. SKIN: Denies rash and pruritus. NEUROLOGICAL: Endorses headache and peripheral neuropathy. Denies syncope. PSYCHIATRIC: Denies recent changes in mood. Denies anxiety and depression. Past Medical History Past Medical History Comments PMH COMMENT: PMH: hypertension, hypothyroidism, breast cancer PSH: Partial hysterectomy in 2006, some type of knee surgery in 2011, and double mastectomy around 2018 or 2019 (preceded by radiation and chemotherapy) Allergies: NKDA FH: Dad had stomach cancer. Mom had diabetes and uterine cancer. SH: Lives in [place] in a trailer house with boyfriend. Started drinking in her 30s and still drinks with an average of 6 to 10 cans of beer per night. Started smoking in her 30s and still smokes with an average of 3-1/4 packs/day. Denies recreational drug use history. Exam Vital Signs Temp Pulse Resp BP Pulse Ox O2 Del Method 98.7 F 78 18 119/70 97 Room Air 01/26/25 13:49 01/26/25 13:49 01/26/25 13:49 01/26/25 13:49 01/26/25 13:49 01/26/25 13:49 Narrative Exam General: Awake and tired. Morbidly obese, conversational and non-toxic appearing. Smells strongly of tobacco smoke. HEENT: Normocephalic, atraumatic, mucous membranes moist. Heart: Regular rate and rhythm, no murmurs. Lungs: Clear to auscultation with no wheezing or crackles. Limited breath sounds due to body habitus. Abdomen: Soft, obese, nondistended, nontender, positive bowel sounds. ?No guarding or rebound tenderness. Neurologic: Alert and oriented x3, no gross neurological deficit, and patient able to move all 4 extremities. Extremities: Trace bilateral lower extremity edema. Long toenails. Skin: No rash or ecchymoses. Striae noted, excessive hair growth noted on face as well. Results: Labs 01/27/25 05:12 01/27/25 07:53 Labs: Short CBC 01/26/25 Range/Units 09:18 WBC 8.2 (3.6-11.0) Thou/mm3 Hgb 13.5 (12.0-16.0) g/dL Hct 38.7 (36.0-46.0) % Plt Count 150 (140-440) Thou/mm3 BMP 01/26/25 01/26/25 09:18 12:47 Sodium 119 L* 119 L* Potassium 2.3 L* 3.0 L D Chloride 77 L* 79 L* Carbon Dioxide 29.7 28.8 BUN 10 9 Creatinine 1.1 1.0 Glucose 112 H 115 H Calcium 8.4 8.2 L Cardiac Enzymes 01/26/25 01/26/25 Range/Units 09:18 09:55 Total Creatine Kinase 115 (34-171) U/L Troponin I < 0.020 (0.0-0.045) ng/mL Liver Function 01/26/25 01/26/25 Range/Units 09:18 12:47 Total Bilirubin 0.9 (0.3-1.2) mg/dL AST 27 (0-34) U/L ALT 18 (10-49) U/L Alkaline Phosphatase 80 (46-116) U/L Albumin 3.4 L 3.3 L (3.5-5.0) gm/dL Urine 01/26/25 Range/Units 09:55 Urine Color Yellow (Lt Yel-Yel) Urine Clarity Clear (Clear/Hazy) Urine pH 5.5 (5.0-7.0) Ur Specific [place] 1.031 (1.001-1.035) Urine Protein Negative (Neg - Trace) Urine Glucose (UA) Negative (Negative) Quality Measures Quality Measures none Medications Home Medications and Allergies Allergies Allergy/AdvReac Type Severity Reaction Status Date / Time No Known Allergies Allergy Verified 01/26/25 09:01 Visit Medications Albuterol/Ipratropium (Albuterol/Ipratropium (Duoneb) Rt Deya 3 Ml Nebu) 3 ml INH Q6HRRT [facility] Stop: 02/25/25 18:59 Diazepam (Diazepam Inj 5 Mg/Ml Vial 2 Ml) 10 mg IVP Q1HR PRN PRN Reason: CIWA 20-25 Stop: 01/31/25 14:00 Diazepam (Diazepam Inj 5 Mg/Ml Vial 2 Ml) 5 mg IVP Q2HR PRN PRN Reason: CIWA SCORE 14-19 Stop: 01/31/25 14:00 Diazepam (Diazepam Inj 5 Mg/Ml Vial 2 Ml) 15 mg IVP Q15M PRN PRN Reason: RASS GREATER OR EQUAL TO +2 Stop: 01/31/25 14:00 Enoxaparin Sodium (Enoxaparin Sod Inj 40 Mg/0.4 Ml Syringe) 40 mg SC QDAY ROSALBA Stop: 02/09/25 13:59 Sodium Chloride (Ns) 1,000 mls @ 100 mls/hr IV .Q10H ROSALBA Stop: 02/25/25 10:07 Last Admin: 01/26/25 10:20 Dose: 100 mls/hr Norepinephrine Bitartrate (Levophed In Ns 16mg/250ml) 16 mg in 250 mls @ 5.89 mls/hr IV .Q24H PRN; Protocol PRN Reason: PER protocol Stop: 02/25/25 10:09 Last Titration: 01/26/25 12:55 Dose: 0.07 mcg/kg/min, 8.245 mls/hr Lorazepam (Lorazepam 0.5 Mg Tablet) 1 mg PO Q4HR PRN PRN Reason: CIWA SCORE 7-11 Stop: 01/31/25 14:00 Discontinued Medications Desmopressin Acetate (Desmopressin Acetate 4 Mcg/Ml Vial) 4 mcg IV X1 ONE Stop: 01/26/25 14:16 Potassium Chloride (Kcl Ivpb) 10 meq in 100 mls @ 100 mls/hr IV Q1H ROSALBA Stop: 01/26/25 13:58 Last Admin: 01/26/25 13:00 Dose: 100 mls/hr Potassium Chloride (Potassium Chloride 20 Meq Tabcr) 40 meq PO X1 ONE Stop: 01/26/25 09:59 Last Admin: 01/26/25 10:58 Dose: Not Given Potassium Chloride (Potassium Chloride 10% 20 Meq/15 Ml Udc) 40 meq PO X1 ONE Stop: 01/26/25 10:29 Last Admin: 01/26/25 10:49 Dose: 40 meq Assessment & Plan Plan Zari Carreno is a 54-year-old F with a PMH of hypertension, suspected congestive heart failure, hypothyroidism, breast cancer status post bilateral- mastectomy, and significant ongoing smoking history who presented to the [facility] ED with a chief complaint of feeling foggy and just out of it and being unable to urinate. A stroke alert was called after patient was noticed to have dysarthria on exam and teleneurology was consulted. Patient's NIHSS score was 0 and teleneurology endorsed low suspicion of an acute infarct, recommending the pursuit of a metabolic workup instead. However, patient, whose blood pressure had been normotensive 137/94 upon admission, began having significant hypotension in the setting of elevated lactate 2.3, prompting her to be started on Levophed. Nephrology was consulted and they recommended NS maintenance fluid at 100 mL/h. Additionally, patient had an arterial line placed for noninvasive blood pressure monitoring along with repletion of her potassium. Patient was admitted for the work-up and management of undifferentiated shock requiring pressor support in the setting of severe hypoosmolar hyponatremia, severe hypokalemia, and severe hypochloremia. NEURO #Metabolic encephalopathy #Stroke rule out DDx: Wernicke's encephalopathy Dx: -01/[address] was negative for acute hemorrhage, mass effect, or midline shift. -01/26 venous Doppler study was negative for deep vein thrombosis. -01/26 head/neck CTA was negative for significant neck arterial stenoses, cerebral arterial large vessel occlusions, or thrombus. Rx: -Treat electrolyte derangements and hypotension as mentioned below RRx: -Monitor for newly emergent focal neurological deficits #Alcohol use disorder Started drinking in her 30s and still drinks with an average of 6 to 10 cans of beer per night Rx: -CIWA protocol RRx: -Monitor for breakthrough alcohol withdrawal symptoms (especially seizures) CARDIO #Shock, undifferentiated #Hypotension #Elevated lactic acid Normotensive 137/94 upon admission, began having significant hypotension in the setting of elevated lactate 2.3, prompting her to be started on Levophed Lactic acid downtrended from 2.3 to 1.5 on 01/26 (same day as admission) Rx: -IV Levophed 0.05 mcg/kg/min -Strict I's & O's RRx: -Monitor blood pressure PULM No active problems GI No active problems NEPHRO #Symptomatic hypoosmolar hypochloremic hyponatremia #Hypokalemia DDx: Beer potomania, medication induced-Lasix/DREA/ARB Dx: -01/26 admission CMP showed sodium 119, potassium 2.3, chloride 77, normal CO2 29.7, normal anion gap 12, calculated osmolality 240. -01/26 UA showed urine specific gravity 1.031, normal random creatinine 110, low random sodium less than 15.0, normal random potassium 20, low random chloride less than 20.0, and low random urea nitrogen 145.0. Rx: -IV hypertonic 3% NS maintenance fluid @ 50 mL/hr with goal of 4-6 mEq increase q24HR until normalized -Fluid restriction 1500 mL qD -Renal panel q4HR RRx: -Follow up on renal panel URO No active problems HEME No active problems ENDO ID No active problems MSK No active problems OTHER #Chronic active smoker Started smoking in her 30s and still smokes with an average of 3-1/4 packs/day Disposition: ICU for pressor support DVT prophylaxis: SC Enoxaparin 40 mg qD GI prophylaxis: None Diet: NPO Wells: Present Lines: None Antibiotics: None CODE STATUS: FULL Patient plan of care was discussed with the attending certified bench jeweler technician, Dr. Junior. Jose Olivera DO Internal Medicine, PGY-1 Attending Provider Attestation/Addendum Patient seen and examined with above resident, Herve Olivera DO. I agree with the findings, assessment, and plan of care as documented separately differences below. Patient seen in the emergency department with multiple metabolic derangements and significant hypotension likely secondary to hypovolemia. Cautious fluid resuscitation secondary to severe hyponatremia with initial serum sodium of 119. Patient was given DDAVP and hypertonic saline with goal to maintain serum sodium between range 123-125 in the next 24 hours. After this point this will be in a safe range that she can be further increased. Will continue maintaining n.p.o. to avoid extraneous adjustments in her serum sodium. Continue to monitor gradually overnight. Arterial line will remain in place and with MAP of high 70s in the emergency department patient can probably have Levophed tapered off overnight. Patient also with significant alcohol use history is likely her presentation is related to beer potomania. Patient to be monitored closely in the ICU for the next 24 hours for potential superimposed alcohol withdrawal though the patient denies any previous history of this. Currently denies any tremors or hallucinations. Alcohol level negative. Her last drink was yesterday night prior to arrival in the ED this morning, multiple servings of beer every night historically. Total critical care time: Total critical care time: I personally spent 40 minutes for review of physiologic parameters, directing plan of care directly, coordination of care with other specialists, and counseling patient at bedside. This is exclusive of time spent teaching of staff performing separate billable procedures. Patient remains at significant risk for further morbidity and mortality warranting close monitoring care only available in the ICU. Critical care services required for severe hyponatremia, hypovolemic shock, alcohol withdrawal syndrome, beer potomania.
[2025-01-26 14:30] LABS: Base Excess 8 (-3-3); HCO3 31 mEq/L (20-26); Inspired Oxygen, FIO2 21 %; O2 Saturation 95 % (91-98); PCO2 36 mmHg (32.0-48.0); PO2 68 mmHg (83-108); pH, Arterial 7.54 (7.35-7.45)
[2025-01-26 14:31] LABS: Puncture Site Arterial Line
--- NOTE | 2025-01-26 14:38 | PC.NURSE ---
REPORT CALLED TO [facility]. NO FURTHER QUESTIONS. CALLED CT TO SEE IF THERE IS TIME TO TAKE PATIENT NOW FOR CT SCAN BEFORE PATIENT GOES UP TO ICU.
[2025-01-26] MEDS: DESMOPRESSIN ACETATE 4 MCG/ML VIAL IV (15:39)
[2025-01-26] MEDS: SODIUM CHLORIDE 3%(Hypertonic) 500 ML in PRE-MIXED 1 BAG 50 ML IV (15:39)
[2025-01-26 16:29] LABS: Alcohol, Blood Medical < 3.0 mg/dL (0-10.0)
[2025-01-26 17:01] LABS: Albumin, Serum 3.2 gm/dL (3.5-5.0); Anion Gap 11 (7-16); BUN/Creatinine Ratio 13 Ratio (12-20); Blood Urea Nitrogen 10 mg/dL (9-23); Calcium 8.0 mg/dL (8.3-10.6); Calcium (Corrected) 8.6 mg/dL (8.5-10.1); Carbon Dioxide 27.0 mMol/L (20.0-31.0); Chloride 82 mMol/L (98-107); Creatinine (Component) 0.8 mg/dL (0.6-1.3); Estimated Creatinine Clearance 103.1 mL/min (>60); Glucose 142 mg/dL (74-106); Osmolality,Calculated 243 (275-295); Phosphorous 3.2 mg/dL (2.4-5.1); Potassium 2.9 mMol/L (3.4-5.1); Sodium 120 mMol/L (136-145); eGFR > 60 See Note
[2025-01-26] MEDS: Magnesium Sulfate 2 GM Ivpb 2 GM/50 ML BAG IV (17:16)
[2025-01-26] MEDS: NICOTINE PATCH 21 MG/24 HR PATCH.TD24 TOP (17:36)
[2025-01-26] MEDS: ALBUTEROL/IPRATROPIUM (Duoneb) RT SOL 3 ML NEBU INH (19:12)
[2025-01-26 20:53] LABS: Albumin, Serum 3.1 gm/dL (3.5-5.0); Anion Gap 10 (7-16); BUN/Creatinine Ratio 15 Ratio (12-20); Blood Urea Nitrogen 9 mg/dL (9-23); Calcium 7.9 mg/dL (8.3-10.6); Calcium (Corrected) 8.6 mg/dL (8.5-10.1); Carbon Dioxide 26.3 mMol/L (20.0-31.0); Chloride 85 mMol/L (98-107); Creatinine (Component) 0.6 mg/dL (0.6-1.3); Estimated Creatinine Clearance 137.5 mL/min (>60); Glucose 137 mg/dL (74-106); Osmolality,Calculated 244 (275-295); Phosphorous 2.6 mg/dL (2.4-5.1); Potassium 3.1 mMol/L (3.4-5.1); Sodium 121 mMol/L (136-145); eGFR > 60 See Note
[2025-01-26] MEDS: Magnesium Sulfate 4 GM Ivpb 4 GM/50 ML BAG IV (21:18)
[2025-01-26] MEDS: POTASSIUM CHLORIDE 10% 20 MEQ/15 ML UDC 40 MEQ GT (21:30)
[2025-01-26] MEDS: DIAZEPAM INJ 5 MG/ML VIAL 2 ML IVP (23:00)
[2025-01-27] VITALS (162 sets, daily range): BP systolic 2–223; BP diastolic 2–212; PULSE 69–188; RESP 14–99; TEMP 36.2–37; O2SAT 93–100; BMI 50.6
[2025-01-27 00:55] LABS: Albumin, Serum 3.2 gm/dL (3.5-5.0); Anion Gap 8 (7-16); BUN/Creatinine Ratio 10 Ratio (12-20); Blood Urea Nitrogen 6 mg/dL (9-23); Calcium 7.8 mg/dL (8.3-10.6); Calcium (Corrected) 8.4 mg/dL (8.5-10.1); Carbon Dioxide 25.0 mMol/L (20.0-31.0); Chloride 90 mMol/L (98-107); Creatinine (Component) 0.6 mg/dL (0.6-1.3); Estimated Creatinine Clearance 137.5 mL/min (>60); Glucose 147 mg/dL (74-106); Osmolality,Calculated 248 (275-295); Phosphorous 1.9 mg/dL (2.4-5.1); Potassium 3.4 mMol/L (3.4-5.1); Sodium 123 mMol/L (136-145); eGFR > 60 See Note
[2025-01-27] MEDS: ALBUTEROL/IPRATROPIUM (Duoneb) RT SOL 3 ML NEBU INH ×4 (01:16→19:13)
[2025-01-27] MEDS: DIAZEPAM INJ 5 MG/ML VIAL 2 ML IVP ×5 (01:26→13:16)
[2025-01-27 06:39] LABS: Basophils # (Auto) 0.0 Thou/mm3 (0.0-0.2); Basophils % (Auto) 0 % (0-2.5); Eosinophils # (Auto) 0.0 Thou/mm3 (0.0-0.5); Eosinophils % (Auto) 0 % (0-10); Hematocrit 34.3 % (36.0-46.0); Hemoglobin 12.0 g/dL (12.0-16.0); Immature Granulocytes Auto 0.04 Thou/mm3 (0.00-0.00); Lymphocytes # (Auto) 0.8 Thou/mm3 (1.0-4.8); Lymphocytes % (Auto) 11 % (10-50); Mean Corpuscular HGB Conc 35.0 g/dl (31.0-37.0); Mean Corpuscular Hemoglobin 30.0 pg (25.0-35.0); Mean Corpuscular Volume 86 fL (80-100); Monocytes # (Auto) 0.5 Thou/mm3 (0.0-0.8); Monocytes % (Auto) 7 % (0-12); Neutrophils # (Auto) 5.6 Thou/mm3 (1.8-7.7); Neutrophils % (Auto) 80 % (37-80); Nucleated Red Blood Cell # 0.00 Thou/mm3 (0.00-0.00); Nucleated Red Blood Cell % 0 /100 WBC (0); Platelet Count 142 Thou/mm3 (140-440); RDW Standard Deviation 48.1 fL (36.4-46.3); Red Blood Count 4.00 Miln/mm3 (4.00-5.20); White Blood Count 7.0 Thou/mm3 (3.6-11.0)
[2025-01-27 07:29] LABS: Alanine Aminotransferase 15 U/L (10-49); Albumin, Serum 2.8 gm/dL (3.5-5.0); Albumin/Globulin Ratio 1.3 (1.2-2.2); Alkaline Phosphatase 75 U/L (46-116); Anion Gap 9 (7-16); Aspartate Amino Transferase 14 U/L (0-34); BUN/Creatinine Ratio 16 Ratio (12-20); Bilirubin,Total 0.8 mg/dL (0.3-1.2); Blood Urea Nitrogen 8 mg/dL (9-23); Calcium 7.5 mg/dL (8.3-10.6); Calcium (Corrected) 8.5 mg/dL (8.5-10.1); Carbon Dioxide 26.3 mMol/L (20.0-31.0); Chloride 92 mMol/L (98-107); Creatinine (Component) 0.5 mg/dL (0.6-1.3); Estimated Creatinine Clearance 165.0 mL/min (>60); Globulin 2.2 gm/dL (2.3-3.5); Glucose 129 mg/dL (74-106); Magnesium 2.4 mg/dL (1.6-2.6); Osmolality,Calculated 255 (275-295); Phosphorous 2.1 mg/dL (2.4-5.1); Potassium 3.3 mMol/L (3.4-5.1); Sodium 127 mMol/L (136-145); Total Protein 5.0 gm/dL (5.7-8.2); eGFR > 60 See Note
[2025-01-27] MEDS: ENOXAPARIN SOD INJ 40 MG/0.4 ML SYRINGE SC ×2 (08:20→21:27)
[2025-01-27] MEDS: NICOTINE PATCH 21 MG/24 HR PATCH.TD24 TOP (08:21)
--- NOTE | 2025-01-27 08:25 | PD.RESPRO ---
Documentation for date of: 01/27/25 Subjective Subjective Interval history: Zari Carreno is a 54-year-old F with a PMH of hypertension, suspected congestive heart failure, hypothyroidism, breast cancer status post bilateral-mastectomy, and significant ongoing smoking history who presented to the [facility] ED with a chief complaint of feeling foggy and just out of it and being unable to urinate. Patient reports that her current symptoms started last night and that her fogginess in particular has worsened since waking up this morning at 6 AM. She denies ever having a similar prior episode. She also complains of her hands and feet falling asleep intermittently but says that this has been an ongoing occurrence for her. Per ED note, patient's male partner reports that patient has also been unsteady with difficulty ambulating since yesterday and has had episodes of having a blank stare on their face. In the ED, vitals showed: BP 137/94 HR 83 RR 22 Temp 98.0 SpO2 98% on room air ED Course: CBC and coagulation panel were within normal limits. ABG showed alkalotic pH 7.45, normal pCO2 36, low PaO2 68, high HCO3 31, normal O2 saturation 95%, and high base excess 8. CMP showed severely low sodium 119, severely low potassium 2.3, severely low chloride 77, normal CO2 29.7, normal anion gap 12, low calculated osmolality 240, high lactic acid 2.3, high uric acid 8.0, borderline low magnesium 1.6, high TSH 4.92, normal free T4 1.40, and negative qualitative hCG. UA showed rare urine bacteria, urine specific gravity 1.031, and positive leukocyte esterase. It also showed normal random creatinine 110, low random sodium <15.0, normal random potassium 20, low random chloride <20.0, and low random urea nitrogen 145.0. UDS was negative. Imaging: Chest x-ray was negative for aspiration pneumonia. Head CT was negative for acute hemorrhage, mass effect, or midline shift. Head/neck CTA showed no significant neck arterial stenoses, no cerebral arterial large vessel occlusions, or thrombus. EKG showed junctional rhythm with low QRS voltage in precordial leads, possible right ventricular conduction delay, and nonspecific ST and T wave abnormality with QTc 232. Venous Doppler study was negative for deep vein thrombosis. In the ED, patient was given IV potassium chloride 10 mEq x5, 1 L IV NS maintenance fluid at 100 mL/h, p.o. potassium chloride 40 mEq, IV Levophed at 0.05 mcg/kg/min, SC enoxaparin 40 mg, IV desmopressin 4 mcg, 0.5 L IV NS maintenance fluid at 50 mL/h, IV magnesium sulfate 2 g, and topical nicotine patch. A stroke alert was called after patient was noticed to have dysarthria on exam and teleneurology was consulted. Patient's NIHSS score was 0 and teleneurology endorsed low suspicion of an acute infarct, recommending the pursuit of a metabolic workup instead. However, patient, whose blood pressure had been normotensive 137/94 upon admission, began having significant hypotension in the setting of elevated lactate 2.3, prompting her to be started on Levophed. Nephrology was consulted and they recommended NS maintenance fluid at 100 mL/h. Additionally, patient had an arterial line placed for noninvasive blood pressure monitoring along with repletion of her potassium. Patient was admitted for the work-up and management of undifferentiated shock requiring pressor support in the setting of severe hypoosmolar hyponatremia, severe hypokalemia, and severe hypochloremia. 01/27/2025: Overnight patient was given KCl 40 mEq IV x 1 and magnesium sulfate 4 g IV x 1. Sodium increased to 127 from 119. Input 968, output 1395, balance -426 cc in past 24 hours. This morning patient feels anxious and is tremulous. However she is A&O times 3 and no longer confused. Labs showed NA 127, K3.3, Phos 2.1, Mg 2.4. Scheduled Librium 25 mg p.o. Q8 hourly, D5/half NS 1 IVF bolus, KCl 40 mEq p.o. x 1, thiamine 500 mg IV 3 times daily and continue with 1200 cc fluid restriction. Exam Vital Signs Temp Pulse Resp BP Pulse Ox O2 Del Method 97.6 F 97 20 132/104 H 100 Room Air 01/27/25 04:00 01/27/25 06:44 01/27/25 06:44 01/26/25 15:06 01/27/25 06:44 01/26/25 13:49 Narrative Exam Constitutional Alert, oriented x 3 and anxious. Obese, middle-aged female HEENT Vision grossly intact. Patent nares. Trachea midline Respiratory Chest normal on inspection and scattered wheeze on auscultation throughout all lung [place] Cardiovascular S1 and S2 audible, RRR. No murmurs carotid bruit. No gross JVD. Abdominal Soft, obese and non tender to palpation in all quadrants. Umbilicus everted and rectus sheath diastasis. BS + Genitourinary No bladder tenderness, no flank pain. Normal to palpation Musculoskeletal Extremities tone within normal limits. No LE edema. Neurological CN II - XII grossly intact. Extremity motor and sensation grossly intact. NIHSS 0 Skin Warm, dry and intact. No apparent lesions. Psychiatric Patient has good affect, is cooperative Objective Labs 01/27/25 05:12 01/27/25 07:53 Labs: Laboratory Results - last 24 hr 01/26/25 01/26/25 01/26/25 09:18 09:55 10:22 WBC 8.2 RBC 4.64 Hgb 13.5 Hct 38.7 MCV 83 MCH 29.1 MCHC 34.9 RDW Std Deviation 46.2 Plt Count 150 Neut % (Auto) 75 Lymph % (Auto) 16 Stevens % (Auto) 9 Eos % (Auto) 0 Baso % (Auto) 0 Neut # (Auto) 6.1 Lymph # (Auto) 1.3 Stevens # (Auto) 0.7 Eos # (Auto) 0.0 Baso # (Auto) 0.0 Immature Gran # (Auto) 0.06 H Absolute Nucleated RBC 0.00 Immature Gran % 1 H Nucleated RBC % 0 PT 12.0 INR 1.1 APTT 25.9 Puncture Site ABG pH ABG pCO2 ABG pO2 ABG HCO3 ABG O2 Saturation ABG Base Excess FiO2 Sodium 119 L* Potassium 2.3 L* Chloride 77 L* Carbon Dioxide 29.7 Anion Gap 12 BUN 10 Creatinine 1.1 Estim Creat Clear Calc Not Performed. eGFR > 60 BUN/Creatinine Ratio 9 L Glucose 112 H Calculated Osmolality 240 L Lactic Acid 2.3 H Uric Acid 8.0 H Calcium 8.4 Corrected Calcium 8.9 Phosphorus Magnesium 1.6 Total Bilirubin 0.9 AST 27 ALT 18 Alkaline Phosphatase 80 Ammonia < 10 L Total Creatine Kinase 115 Troponin I < 0.020 B-Natriuretic Peptide 46 Total Protein 5.9 Albumin 3.4 L Globulin 2.5 Albumin/Globulin Ratio 1.4 Triglycerides 122 Cholesterol 119 L LDL Cholesterol, Calc 69 HDL Cholesterol 26 L Cholesterol/HDL Ratio 4.6 TSH 4.92 H Free T4 1.40 HCG, Qual Negative Ur Collection Type Clean Catch Urine Color Yellow Urine Clarity Clear Urine pH 5.5 Ur Specific [place] 1.031 Urine Protein Negative Urine Glucose (UA) Negative Urine Ketones Negative Urine Blood Negative Urine Nitrite Negative Urine Bilirubin Negative Urine Urobilinogen (Auto) 2.0 Ur Leukocyte Esterase Positive Urine RBC 4 H Urine WBC 5 Ur Squamous Epith Cells < 1 Urine Bacteria Rare Hyaline Casts < 1 Ur Culture Indicated? Not Indicated Ur Random Creatinine 110 Ur Random Sodium < 15.0 L Ur Random Potassium 20 Ur Random Chloride < 20.0 L Ur Random Urea Nitrogn 145.0 L Salicylates < 3.0 Urine Opiates Screen Negative Urine Fentanyl Screen Negative Acetaminophen < 2.0 L Ur Barbiturates Screen Negative U Amphetamin/Meth Scrn Negative U Benzodiazepines Scrn Negative U Cocaine Metab Screen Negative U Marijuana (THC) Screen Negative Ethyl Alcohol HCG (Qual) Negative 01/26/25 01/26/25 01/26/25 12:47 13:39 14:23 WBC RBC Hgb Hct MCV MCH MCHC RDW Std Deviation Plt Count Neut % (Auto) Lymph % (Auto) Stevens % (Auto) Eos % (Auto) Baso % (Auto) Neut # (Auto) Lymph # (Auto) Stevens # (Auto) Eos # (Auto) Baso # (Auto) Immature Gran # (Auto) Absolute Nucleated RBC Immature Gran % Nucleated RBC % PT INR APTT Puncture Site Arterial Line ABG pH 7.54 H ABG pCO2 36 ABG pO2 68 L ABG HCO3 31 H ABG O2 Saturation 95 ABG Base Excess 8 H FiO2 21 Sodium 119 L* Potassium 3.0 L D Chloride 79 L* Carbon Dioxide 28.8 Anion Gap 11 BUN 9 Creatinine 1.0 Estim Creat Clear Calc 82.5 eGFR > 60 BUN/Creatinine Ratio 9 L Glucose 115 H Calculated Osmolality 240 L Lactic Acid 1.5 Uric Acid Calcium 8.2 L Corrected Calcium 8.8 Phosphorus 4.0 Magnesium Total Bilirubin AST ALT Alkaline Phosphatase Ammonia Total Creatine Kinase Troponin I B-Natriuretic Peptide Total Protein Albumin 3.3 L Globulin Albumin/Globulin Ratio Triglycerides Cholesterol LDL Cholesterol, Calc HDL Cholesterol Cholesterol/HDL Ratio TSH Free T4 HCG, Qual Ur Collection Type Urine Color Urine Clarity Urine pH Ur Specific [place] Urine Protein Urine Glucose (UA) Urine Ketones Urine Blood Urine Nitrite Urine Bilirubin Urine Urobilinogen (Auto) Ur Leukocyte Esterase Urine RBC Urine WBC Ur Squamous Epith Cells Urine Bacteria Hyaline Casts Ur Culture Indicated? Ur Random Creatinine Ur Random Sodium Ur Random Potassium Ur Random Chloride Ur Random Urea Nitrogn Salicylates Urine Opiates Screen Urine Fentanyl Screen Acetaminophen Ur Barbiturates Screen U Amphetamin/Meth Scrn U Benzodiazepines Scrn U Cocaine Metab Screen U Marijuana (THC) Screen Ethyl Alcohol < 3.0 HCG (Qual) 01/26/25 01/26/25 01/27/25 16:25 20:15 00:28 WBC RBC Hgb Hct MCV MCH MCHC RDW Std Deviation Plt Count Neut % (Auto) Lymph % (Auto) Stevens % (Auto) Eos % (Auto) Baso % (Auto) Neut # (Auto) Lymph # (Auto) Stevens # (Auto) Eos # (Auto) Baso # (Auto) Immature Gran # (Auto) Absolute Nucleated RBC Immature Gran % Nucleated RBC % PT INR APTT Puncture Site ABG pH ABG pCO2 ABG pO2 ABG HCO3 ABG O2 Saturation ABG Base Excess FiO2 Sodium 120 L 121 L 123 L Potassium 2.9 L 3.1 L 3.4 Chloride 82 L 85 L 90 L Carbon Dioxide 27.0 26.3 25.0 Anion Gap 11 10 8 BUN 10 9 6 L Creatinine 0.8 0.6 0.6 Estim Creat Clear Calc 103.1 137.5 137.5 eGFR > 60 > 60 > 60 BUN/Creatinine Ratio 13 15 10 L Glucose 142 H 137 H 147 H Calculated Osmolality 243 L 244 L 248 L Lactic Acid Uric Acid Calcium 8.0 L 7.9 L 7.8 L Corrected Calcium 8.6 8.6 8.4 L Phosphorus 3.2 2.6 1.9 L Magnesium Total Bilirubin AST ALT Alkaline Phosphatase Ammonia Total Creatine Kinase Troponin I B-Natriuretic Peptide Total Protein Albumin 3.2 L 3.1 L 3.2 L Globulin Albumin/Globulin Ratio Triglycerides Cholesterol LDL Cholesterol, Calc HDL Cholesterol Cholesterol/HDL Ratio TSH Free T4 HCG, Qual Ur Collection Type Urine Color Urine Clarity Urine pH Ur Specific [place] Urine Protein Urine Glucose (UA) Urine Ketones Urine Blood Urine Nitrite Urine Bilirubin Urine Urobilinogen (Auto) Ur Leukocyte Esterase Urine RBC Urine WBC Ur Squamous Epith Cells Urine Bacteria Hyaline Casts Ur Culture Indicated? Ur Random Creatinine Ur Random Sodium Ur Random Potassium Ur Random Chloride Ur Random Urea Nitrogn Salicylates Urine Opiates Screen Urine Fentanyl Screen Acetaminophen Ur Barbiturates Screen U Amphetamin/Meth Scrn U Benzodiazepines Scrn U Cocaine Metab Screen U Marijuana (THC) Screen Ethyl Alcohol HCG (Qual) 01/27/25 05:12 WBC 7.0 RBC 4.00 Hgb 12.0 Hct 34.3 L MCV 86 MCH 30.0 MCHC 35.0 RDW Std Deviation 48.1 H Plt Count 142 Neut % (Auto) 80 Lymph % (Auto) 11 Stevens % (Auto) 7 Eos % (Auto) 0 Baso % (Auto) 0 Neut # (Auto) 5.6 Lymph # (Auto) 0.8 L Stevens # (Auto) 0.5 Eos # (Auto) 0.0 Baso # (Auto) 0.0 Immature Gran # (Auto) 0.04 H Absolute Nucleated RBC 0.00 Immature Gran % 1 H Nucleated RBC % 0 PT INR APTT Puncture Site ABG pH ABG pCO2 ABG pO2 ABG HCO3 ABG O2 Saturation ABG Base Excess FiO2 Sodium 127 L Potassium 3.3 L Chloride 92 L Carbon Dioxide 26.3 Anion Gap 9 BUN 8 L Creatinine 0.5 L Estim Creat Clear Calc 165.0 eGFR > 60 BUN/Creatinine Ratio 16 Glucose 129 H Calculated Osmolality 255 L Lactic Acid Uric Acid Calcium 7.5 L Corrected Calcium 8.5 Phosphorus 2.1 L Magnesium 2.4 Total Bilirubin 0.8 AST 14 ALT 15 Alkaline Phosphatase 75 Ammonia Total Creatine Kinase Troponin I B-Natriuretic Peptide Total Protein 5.0 L Albumin 2.8 L Globulin 2.2 L Albumin/Globulin Ratio 1.3 Triglycerides Cholesterol LDL Cholesterol, Calc HDL Cholesterol Cholesterol/HDL Ratio TSH Free T4 HCG, Qual Ur Collection Type Urine Color Urine Clarity Urine pH Ur Specific [place] Urine Protein Urine Glucose (UA) Urine Ketones Urine Blood Urine Nitrite Urine Bilirubin Urine Urobilinogen (Auto) Ur Leukocyte Esterase Urine RBC Urine WBC Ur Squamous Epith Cells Urine Bacteria Hyaline Casts Ur Culture Indicated? Ur Random Creatinine Ur Random Sodium Ur Random Potassium Ur Random Chloride Ur Random Urea Nitrogn Salicylates Urine Opiates Screen Urine Fentanyl Screen Acetaminophen Ur Barbiturates Screen U Amphetamin/Meth Scrn U Benzodiazepines Scrn U Cocaine Metab Screen U Marijuana (THC) Screen Ethyl Alcohol HCG (Qual) ABG Interpretation ABG results: 01/26/25 14:23 ABG pH 7.54 H ABG pCO2 36 ABG pO2 68 L ABG HCO3 31 H ABG O2 Saturation 95 ABG Base Excess 8 H Quality Measures Quality Measures none Assessment & Plan Assessment Current Active Medications: Generic Name Dose Route Start Last Admin Trade Name Freq PRN Reason Stop Dose Admin Albuterol/Ipratropium 3 ml 01/26/25 19:00 01/27/25 06:43 Albuterol/Ipratropium (Duoneb) Rt Deya 3 Ml Nebu INH 02/25/25 18:59 3 ml Q6HRRT ROSALBA Administration Diazepam 10 mg 01/26/25 14:01 Diazepam Inj 5 Mg/Ml Vial 2 Ml IVP 01/31/25 14:00 Q1HR PRN CIWA 20-25 Diazepam 5 mg 01/26/25 14:01 01/27/25 04:56 Diazepam Inj 5 Mg/Ml Vial 2 Ml IVP 01/31/25 14:00 5 mg Q2HR PRN Administration CIWA SCORE 14-19 Diazepam 15 mg 01/26/25 14:01 Diazepam Inj 5 Mg/Ml Vial 2 Ml IVP 01/31/25 14:00 Q15M PRN RASS GREATER OR EQUAL TO +2 Enoxaparin Sodium 40 mg 01/26/25 14:00 01/27/25 08:20 Enoxaparin Sod Inj 40 Mg/0.4 Ml Syringe SC 02/09/25 13:59 40 mg QDAY ROSALBA Administration Norepinephrine Bitartrate 16 mg in 250 mls @ 5.89 mls/hr 01/26/25 10:10 01/27/25 06:18 Levophed In Ns 16mg/250ml IV 02/25/25 10:09 0.05 mcg/kg/min .Q24H PRN 5.89 mls/hr PER protocol Titration Protocol 0.05 MCG/KG/MIN Lorazepam 1 mg 01/26/25 14:01 01/27/25 07:30 Lorazepam 0.5 Mg Tablet PO 01/31/25 14:00 1 mg Q4HR PRN Administration CIWA SCORE 7-11 Nicotine 21 mg 01/26/25 17:30 01/27/25 08:21 Nicotine Patch 21 Mg/24 Hr Patch.Td24 TOP 02/25/25 17:29 21 mg QDAY ROSALBA Administration Thiamine HCl 500 mg 01/27/25 08:30 Thiamine Inj 100 Mg/Ml Vial 2 Ml IVP 02/26/25 08:29 TID ROSALBA Plan Zari Carreno is a 54-year-old F with a PMH of hypertension, suspected congestive heart failure, hypothyroidism, breast cancer status post bilateral-mastectomy, and significant ongoing smoking history who presented to the [facility] ED with a chief complaint of feeling foggy and just out of it and being unable to urinate. A stroke alert was called after patient was noticed to have dysarthria on exam and teleneurology was consulted. Patient's NIHSS score was 0 and teleneurology endorsed low suspicion of an acute infarct, recommending the pursuit of a metabolic workup instead. However, patient, whose blood pressure had been normotensive 137/94 upon admission, began having significant hypotension in the setting of elevated lactate 2.3, prompting her to be started on Levophed. Nephrology was consulted and they recommended NS maintenance fluid at 100 mL/h. Additionally, patient had an arterial line placed for noninvasive blood pressure monitoring along with repletion of her potassium. Patient was admitted for the work-up and management of undifferentiated shock requiring pressor support in the setting of severe hypoosmolar hyponatremia, severe hypokalemia, and severe hypochloremia. NEURO #Acute metabolic encephalopathy?resolving #Stroke ruled out DDx: Symptomatic hyponatremia, Wernicke's encephalopathy Dx: -01/[address] was negative for acute hemorrhage, mass effect, or midline shift. -01/26 venous Doppler study was negative for deep vein thrombosis. -01/26 head/neck CTA was negative for significant neck arterial stenoses, cerebral arterial large vessel occlusions, or thrombus. Rx: -Treat electrolyte derangements and hypotension as mentioned below RRx: -Monitor for newly emergent focal neurological deficits #Alcohol withdrawal Started drinking in her 30s and still drinks with an average of 6 to 10 cans of beer per night Rx: - CIWA protocol ? Scheduled Librium 25 mg p.o. 3 times daily ? Thiamine 500 mg IV 3 times daily for 2 days followed by thiamine 200 mg IV for 5 days RRx: -Monitor for breakthrough alcohol withdrawal symptoms (especially seizures) CARDIO #Hypotension Normotensive 137/94 upon admission, began having significant hypotension in the setting of elevated lactate 2.3, prompting her to be started on Levophed Lactic acid downtrended from 2.3 to 1.5 on 01/26 (same day as admission) Rx: - continue to wean off Levophed ?D5/half NS 1L IVF bolus RRx: -Monitor blood pressure PULM #Chronic tobacco dependence DDx: Chronic bronchitis, COPD, emphysema, asthma Rx: DuoNebs scheduled Q6 hourly, nicotine patch GI No active problems NEPHRO # Hypoosmolar hypochloremic hyponatremia #Hypokalemia DDx: Beer potomania, medication induced-Lasix/DREA/ARB, gabapentin Dx: -01/26 admission CMP showed sodium 119, potassium 2.3, chloride 77, normal CO2 29.7, normal anion gap 12, calculated osmolality 240. -01/26 UA showed urine specific gravity 1.031, normal random creatinine 110, low random sodium less than 15.0, normal random potassium 20, low random chloride less than 20.0, and low random urea nitrogen 145.0. ? 01/27 NA 127, K3.3, Phos 2.1, Mg 2.4 Rx: - Renal panel q4HR ?1L D5/half NS IVF bolus ? KCl 40 mEq p.o. x 1 ? Continue 1200 cc/day fluid restriction RRx: -Follow up on renal panel URO No active problems HEME No active problems ENDO #Morbid obesity Dx: BMI 50.7 Rx: Recommend starting GLP agonist as outpatient and also possible bariatric surgery consultation. #Hypothyroidism Dx: TSH 4.96 Rx: Will resume home medication, pending reconciliation ID No active problems MSK No active problems ICU Health maintenance: Dispo: Na checks q4hrly, titrate levophed, CIWA. Possible downgrade to floor today Diet: TUbe feeds via OGT DVT ppx: Enoxaparin 40mg SC BID GI ppx: none IV lines: 2 pIV Central line: No Arterial line: No Wells: Yes (started 01/26/25- Code status: FULL CODE Plan of care discussed with Attending Dr. Vernon Obando MD PGY 2 Disclaimer: This note was dictated by speech recognition. Minor errors in service center manager may be present due to voice recognition software. Attending Provider Attestation/Addendum Patient seen and examined with above resident, Myron Obando MD. I agree with the findings, assessment, and plan of care as documented except for any differences below. Patient with significant improvement overnight with minimal vasopressor requirements at this point. She is undergoing some mild alcohol withdrawal but was appropriately treated with diazepam overnight. Started on taper of Librium to help smooth out agitation with as needed dosing intermittently available. Patient without any significant alcoholic hepatitis. Thiamine replacement also being given. Most notable, patient sodium slightly overcorrected this morning, will stop DDAVP but will provide free water to ensure that the patient remains within the goal of 4-6 mEq in 24 hours. Will touch base with nephrology as well consulted yesterday. Should the patient's serum sodium remain in the 120s which is a safer range, the patient can be transferred out to the floor once vasopressor requirements are done. I suspect that the patient continues to have intravascular depletion with pulse pressure ration of 22 seen on arterial catheter waveform this morning. However to avoid overcorrection of serum sodium will await for larger volume bolus with LR later on today for transferred to the medicine osman. DDAVP was stopped given limited urine output and will follow-up on urine output today to ensure that the patient does not have over rapid correction due to free water diuresis but she is now out of the significant range for development of central pontine myelinolysis. Patient counseled at bedside about alcohol use and associated beer potomania. Patient confirmed verbal understanding. Total critical care time: I personally spent 40 minutes review of physiologic parameters, directing plan of care throughout the day, coordination of care with other subspecialist, and counseling patient at bedside. This is exclusive of time spent teaching of staff performing separate billable procedures. Patient remains at significant risk for further morbidity and mortality warranting close monitoring and care only available in the ICU. Critical care services required for severe hyponatremia, alcohol withdrawal syndrome, hypovolemic shock, and acute metabolic encephalopathy.
[2025-01-27] MEDS: POTASSIUM CHLORIDE 10% 20 MEQ/15 ML UDC 40 MEQ PO (08:41)
[2025-01-27 09:01] LABS: Albumin, Serum 3.0 gm/dL (3.5-5.0); Anion Gap 9 (7-16); BUN/Creatinine Ratio 10 Ratio (12-20); Blood Urea Nitrogen 5 mg/dL (9-23); Calcium 7.9 mg/dL (8.3-10.6); Calcium (Corrected) 8.7 mg/dL (8.5-10.1); Carbon Dioxide 25.7 mMol/L (20.0-31.0); Chloride 91 mMol/L (98-107); Creatinine (Component) 0.5 mg/dL (0.6-1.3); Estimated Creatinine Clearance 165.0 mL/min (>60); Glucose 144 mg/dL (74-106); Osmolality,Calculated 253 (275-295); Phosphorous 1.8 mg/dL (2.4-5.1); Potassium 3.2 mMol/L (3.4-5.1); Sodium 126 mMol/L (136-145); eGFR > 60 See Note
[2025-01-27] MEDS: THIAMINE INJ 500 MG in SODIUM CHLORIDE 0.9% 100 ML 210 MG IV ×3 (09:13→21:28)
[2025-01-27] MEDS: DEXTROSE 5%-0.45% NS 1,000 ML 999 ML IV (09:15)
--- NOTE | 2025-01-27 09:18 | PC.SS ---
Patient is a 54 year old female presenting to the hospital for shock. MMD UNIT TEACHER made telephone call to patients life partner Virgil Dave PH: [phone] to confirm demographic information, MMD UNIT TEACHER explained role and reason for phone call. Patient?s life partner confirmed that he is the decision maker in case patient is unable to make medical decisions. Patients life partner stated that patient has daughters but they live in [place], Virgil stated that in case there is an emergency he is in communication with her daughters. Virgil stated that he lives with patient at the address on face sheet. Virgil stated that patient does not use DME, PCP is at [facility] in [place], he is unsure of her doctor?s name, her next visit is on 01/28/25. Her pharmacy of choice is [facility]. Patient is currently on disability and is not employed. Once patient is medically clear, Virgil stated that he will provide transportation home. PCP: [facility] Decision maker: Virgil [phone] D/c: Home
[2025-01-27] MEDS: POT PHOS 15 mMol in NS 250 ML 15 MMOL/250 ML BAG 62.5 MMOL IV ×2 (10:48→14:42)
[2025-01-27 11:19] LABS: Glucose Estimated Average 123 mg/dL (80-131); Hemoglobin A1C 5.9 % Hgb (4.8-6.0)
[2025-01-27] MEDS: guaiFENesin SYRUP 200 MG/10 ML UDC PO ×3 (12:03→21:27)
[2025-01-27 12:55] LABS: Albumin, Serum 3.0 gm/dL (3.5-5.0); Anion Gap 8 (7-16); BUN/Creatinine Ratio 8 Ratio (12-20); Blood Urea Nitrogen 5 mg/dL (9-23); Calcium 7.9 mg/dL (8.3-10.6); Calcium (Corrected) 8.7 mg/dL (8.5-10.1); Carbon Dioxide 23.8 mMol/L (20.0-31.0); Chloride 94 mMol/L (98-107); Creatinine (Component) 0.6 mg/dL (0.6-1.3); Estimated Creatinine Clearance 137.5 mL/min (>60); Glucose 169 mg/dL (74-106); Osmolality,Calculated 254 (275-295); Phosphorous 1.0 mg/dL (2.4-5.1); Potassium 3.7 mMol/L (3.4-5.1); Sodium 126 mMol/L (136-145); eGFR > 60 See Note
[2025-01-27] MEDS: RINGERS LACTATED 1000 ML 1,000 ML 999 ML IV (13:46)
[2025-01-27] MEDS: NAPH,KPH MBDB 1 PACKET (1.5 GM) PO (13:47)
[2025-01-27] MEDS: DIAZEPAM INJ 5 MG/ML VIAL 2 ML 2.5 MG IVP ×3 (16:16→23:17)
[2025-01-27 19:19] LABS: Albumin, Serum 3.0 gm/dL (3.5-5.0); Anion Gap 9 (7-16); BUN/Creatinine Ratio 7 Ratio (12-20); Blood Urea Nitrogen < 5 mg/dL (9-23); Calcium 7.9 mg/dL (8.3-10.6); Calcium (Corrected) 8.7 mg/dL (8.5-10.1); Carbon Dioxide 24.2 mMol/L (20.0-31.0); Chloride 95 mMol/L (98-107); Creatinine (Component) 0.7 mg/dL (0.6-1.3); Estimated Creatinine Clearance 117.8 mL/min (>60); Glucose 171 mg/dL (74-106); Osmolality,Calculated 258 (275-295); Phosphorous 2.6 mg/dL (2.4-5.1); Potassium 4.1 mMol/L (3.4-5.1); Sodium 128 mMol/L (136-145); eGFR > 60 See Note
[2025-01-27] MEDS: NAPH,KPH MBDB 1 PACKET (1.5 GM) 2 PACKET PO (21:27)
--- NOTE | 2025-01-27 21:59 | ESPR_ITS ---
<Statement entered by Jackson Michelle MD - 01/31/25 14:17> I reviewed above note and agree with findings and plans. I have also personally examined the patient with medicine team and went over assessment and plan with medical team including recording studio internship and resident physician. <Statement entered by Jl Falcon MD - 01/28/25 10:49> Patient examined and case discussed with the team including attending physician. Note reviewed, I agree with the care plan as documented. Please refer to the note below for further details. - Jl Falcon MD, PGY 3 Disclaimer: The document may contain phonetic/typographic errors due to voice recognition software. These errors are purely due to imperfections in the software program. Documentation for date of: 01/27/25 Subjective Subjective Interval history: Zari Carreno is a 54-year-old F with a PMH of hypertension, suspected congestive heart failure, hypothyroidism, breast cancer status post bilateral- mastectomy, and significant ongoing smoking history who presented to the [facility] ED on 01/26 with a chief complaint of feeling foggy and just out of it and being unable to urinate. Patient reports that her current symptoms started the night before and that her fogginess in particular has worsened since waking up yesterday morning at 6 AM. She denies ever having a similar prior episode. She also complains of her hands and feet falling asleep intermittently but says that this has been an ongoing occurrence for her. Per ED note, patient's male partner repored that patient had also been unsteady with difficulty ambulating since the day before and had episodes of having a blank stare on their face. 01/27: This morning patient was feeling anxious and is tremulous. Sodium increased to 127 from 119. However she is A&O times 3 and no longer confused. Patient voices bodily shakes and feels it in her voice. Admits to Intermittent headaches, but no chest pain, abdominal pain, GI or urinary sxs. Exam Vital Signs Temp Pulse Resp BP Pulse Ox O2 Del Method 97.4 F 107 H 20 113/86 H 98 Room Air 01/27/25 20:00 01/27/25 20:00 01/27/25 20:00 01/27/25 20:00 01/27/25 20:01/27/25 20:00 Narrative Exam Constitutional Alert, oriented x 3 and anxious. Obese, middle-aged female HEENT Vision grossly intact. Patent nares. Trachea midline Respiratory Chest normal on inspection and scattered wheeze on auscultation throughout all lung [place] Cardiovascular S1 and S2 audible, RRR. No murmurs carotid bruit. No gross JVD. Abdominal Soft, obese and non tender to palpation in all quadrants. Umbilicus everted and rectus sheath diastasis. BS + Genitourinary No bladder tenderness, no flank pain. Normal to palpation Musculoskeletal Extremities tone within normal limits. No LE edema. Neurological CN II - XII grossly intact. Extremity motor and sensation grossly intact. NIHSS 0 Skin Warm, dry and intact. No apparent lesions. Psychiatric Patient has good affect, is cooperative Objective Labs 01/28/25 05:00 01/28/25 05:00 Labs: Laboratory Results - last 24 hr 01/27/25 01/27/25 01/27/25 00:28 05:12 07:53 WBC 7.0 RBC 4.00 Hgb 12.0 Hct 34.3 L MCV 86 MCH 30.0 MCHC 35.0 RDW Std Deviation 48.1 H Plt Count 142 Neut % (Auto) 80 Lymph % (Auto) 11 [place] % (Auto) 7 Eos % (Auto) 0 Baso % (Auto) 0 Neut # (Auto) 5.6 Lymph # (Auto) 0.8 L [place] # (Auto) 0.5 Eos # (Auto) 0.0 Baso # (Auto) 0.0 Immature Gran # (Auto) 0.04 H Absolute Nucleated RBC 0.00 Immature Gran % 1 H Nucleated RBC % 0 Sodium 123 L 127 L 126 L Potassium 3.4 3.3 L 3.2 L Chloride 90 L 92 L 91 L Carbon Dioxide 25.0 26.3 25.7 Anion Gap 8 9 9 BUN 6 L 8 L 5 L Creatinine 0.6 0.5 L 0.5 L Estim Creat Clear Calc 137.5 165.0 165.0 eGFR > 60 > 60 > 60 BUN/Creatinine Ratio 10 L 16 10 L Glucose 147 H [address] Glu mg/dL 123 Hemoglobin A1c 5.9 Calculated Osmolality 248 L 255 L 253 L Calcium 7.8 L 7.5 L 7.9 L Corrected Calcium 8.4 L 8.5 8.7 Phosphorus 1.9 L 2.1 L 1.8 L Magnesium 2.4 Total Bilirubin 0.8 AST 14 ALT 15 Alkaline Phosphatase 75 Total Protein 5.0 L Albumin 3.2 L 2.8 L 3.0 L Globulin 2.2 L Albumin/Globulin Ratio 1.3 01/27/25 01/27/25 12:07 18:20 WBC RBC Hgb Hct MCV MCH MCHC RDW Std Deviation Plt Count Neut % (Auto) Lymph % (Auto) [place] % (Auto) Eos % (Auto) Baso % (Auto) Neut # (Auto) Lymph # (Auto) [place] # (Auto) Eos # (Auto) Baso # (Auto) Immature Gran # (Auto) Absolute Nucleated RBC Immature Gran % Nucleated RBC % Sodium 126 L 128 L Potassium 3.7 D 4.1 Chloride 94 L 95 L Carbon Dioxide 23.8 24.2 Anion Gap 8 9 BUN 5 L < 5 L Creatinine 0.6 0.7 Estim Creat Clear Calc 137.5 117.8 eGFR > 60 > 60 BUN/Creatinine Ratio 8 L 7 L Glucose [address] Glu mg/dL Hemoglobin A1c Calculated Osmolality 254 L 258 L Calcium 7.9 L 7.9 L Corrected Calcium 8.7 8.7 Phosphorus 1.0 L 2.6 Magnesium Total Bilirubin AST ALT Alkaline Phosphatase Total Protein Albumin 3.0 L 3.0 L Globulin Albumin/Globulin Ratio ABG Interpretation ABG results: 01/26/25 14:23 ABG pH 7.54 H ABG pCO2 36 ABG pO2 68 L ABG HCO3 31 H ABG O2 Saturation 95 ABG Base Excess 8 H Quality Measures Quality Measures none Assessment & Plan Assessment Current Active Medications: Generic Name Dose Route Start Last Admin Trade Name Skip PRN Reason Stop Dose Admin Acetaminophen 1,000 mg 01/27/25 18:27 Acetaminophen 500 Mg Tablet PO 02/26/25 18:26 Q6HR PRN pain 1-3 or fever >99.9 Albuterol/Ipratropium 3 ml 01/26/25 19:00 01/27/25 19:13 Albuterol/Ipratropium (Duoneb) Rt Deya 3 Ml Nebu INH 02/25/25 18:59 3 ml Q6HRRT ROSALBA Administration Chlordiazepoxide HCl 25 mg 01/27/25 17:00 01/27/25 21:27 Chlordiazepoxide Hcl 25 Mg Capsule PO 02/01/25 16:59 25 mg Q8HR ROSALBA Administration Diazepam 10 mg 01/26/25 14:01 Diazepam Inj 5 Mg/Ml Vial 2 Ml IVP 01/31/25 14:00 Q1HR PRN CIWA 20-25 Diazepam 5 mg 01/27/25 15:51 Diazepam Inj 5 Mg/Ml Vial 2 Ml IVP 02/01/25 15:50 Q2HR PRN CIWA SCORE 14-19 Diazepam 2.5 mg 01/27/25 16:13 01/27/25 19:41 Diazepam Inj 5 Mg/Ml Vial 2 Ml IVP 01/31/25 14:00 2.5 mg Q2HR PRN Administration CIWA SCORE 8 to 13 Enoxaparin Sodium 40 mg 01/27/25 21:00 01/27/25 21:27 Enoxaparin Sod Inj 40 Mg/0.4 Ml Syringe SC 02/10/25 20:59 40 mg BID ROSALBA Administration Guaifenesin 200 mg 01/27/25 12:00 01/27/25 21:27 Guaifenesin Syrup 200 Mg/10 Ml Udc PO 02/26/25 11:59 200 mg QID ROSALBA Administration Protocol Thiamine HCl 500 mg/ Sodium 105 mls @ 210 mls/hr 01/27/25 08:45 01/27/25 21:28 Chloride IV 01/29/25 08:44 210 mls/hr TID ROSALBA Administration Nicotine 21 mg 01/26/25 17:30 01/27/25 08:21 Nicotine Patch 21 Mg/24 Hr Patch.Td24 TOP 02/25/25 17:29 21 mg QDAY ROSALBA Administration Plan Zari Carreno is a 54-year-old F with a PMH of hypertension, suspected congestive heart failure, hypothyroidism, breast cancer status post bilateral- mastectomy, and significant ongoing smoking history who presented to the [facility] ED with a chief complaint of feeling foggy and just out of it and being unable to urinate. A stroke alert was called after patient was noticed to have dysarthria on exam and teleneurology was consulted. Patient's NIHSS score was 0 and teleneurology endorsed low suspicion of an acute infarct, recommending the pursuit of a metabolic workup instead. However, patient, whose blood pressure had been normotensive 137/94 upon admission, began having significant hypotension in the setting of elevated lactate 2.3, prompting her ICU admission and being started on Levophed. Nephrology was consulted and they recommended NS maintenance fluid at 100 mL/h. Patient was admitted for the work-up and management of undifferentiated shock requiring pressor support in the setting of severe hypoosmolar hyponatremia, severe hypokalemia, and severe hypochloremia. #Acute metabolic encephalopathy?resolving #Alcohol withdrawal #Stroke ruled out DDx: Symptomatic hyponatremia, Wernicke's encephalopathy + head CT was negative for acute hemorrhage, mass effect, or midline shift. + venous Doppler study was negative for deep vein thrombosis. + head/neck CTA was negative for significant neck arterial stenoses, cerebral arterial large vessel occlusions, or thrombus. + Started drinking in her 30s and still drinks with an average of 6 to 10 cans of beer per night Plan: - CIWA protocol ? Scheduled Librium 25 mg p.o. 3 times daily ? Thiamine 500 mg IV 3 times daily for 2 days followed by thiamine 200 mg IV for 5 days -Monitor for breakthrough alcohol withdrawal symptoms (especially seizures) #Hypoosmolar hypochloremic hyponatremia #Hypokalemia #Hypophosphatemia DDx: Beer potomania, medication induced-Lasix/DREA/ARB, gabapentin + admission CMP showed sodium 119, potassium 2.3, chloride 77, normal CO2 29.7, normal anion gap 12, calculated osmolality 240. + UA showed urine specific gravity 1.031, normal random creatinine 110, low random sodium less than 15.0, normal random potassium 20, low random chloride less than 20.0, and low random urea nitrogen 145.0. + 9/7 NA 127, K3.3, Phos 2.1, Mg 2.4 Plan: - Neutra-Phos x2 - Renal panel q4HR ?1L D5/half NS IVF bolus ? KCl 40 mEq p.o. x 1 ? Continue 1200 cc/day fluid restriction #Chronic tobacco dependence -DuoNebs scheduled Q6 hourly, nicotine patch #Morbid obesity BMI 50.7 -Recommend starting GLP agonist as outpatient and also possible bariatric surgery consultation. #Hypothyroidism TSH 4.96 -Will resume home medication, pending reconciliation #Hypotension, resolved Health maintenance: Dispo: Na checks q4hrly, CIWA. Diet: Tube feeds via OGT DVT ppx: Enoxaparin 40mg SC BID GI ppx: none IV lines: 2 pIV Wells: Yes (started 01/26/25- Code status: FULL CODE This case was discussed with my attending physician, Dr. Michelle, and senior resident Dr. Falcon. Beatriz Sotelo, DO PGY I
[2025-01-27 22:07] LABS: Anion Gap 6 (7-16); BUN/Creatinine Ratio 8 Ratio (12-20); Blood Urea Nitrogen < 5 mg/dL (9-23); Carbon Dioxide 26.0 mMol/L (20.0-31.0); Chloride 96 mMol/L (98-107); Creatinine (Component) 0.6 mg/dL (0.6-1.3); Potassium 3.7 mMol/L (3.4-5.1); Sodium 128 mMol/L (136-145)
[2025-01-27 22:08] LABS: Albumin, Serum 3.2 gm/dL (3.5-5.0); Calcium 8.5 mg/dL (8.3-10.6); Calcium (Corrected) 9.1 mg/dL (8.5-10.1); Estimated Creatinine Clearance 137.5 mL/min (>60); Glucose 104 mg/dL (74-106); Osmolality,Calculated 254 (275-295); Phosphorous 2.2 mg/dL (2.4-5.1); eGFR > 60 See Note
[2025-01-27] MEDS: MELATONIN 3 MG TABLET 6 MG PO (23:34)
[2025-01-28] VITALS (11 sets, daily range): BP systolic 127–155; BP diastolic 81–95; PULSE 84–113; RESP 16–97; TEMP 36.3–36.8; O2SAT 97–100
[2025-01-28] MEDS: ALBUTEROL/IPRATROPIUM (Duoneb) RT SOL 3 ML NEBU INH ×4 (00:55→18:41)
[2025-01-28 02:19] LABS: Albumin, Serum 3.0 gm/dL (3.5-5.0); Anion Gap 7 (7-16); BUN/Creatinine Ratio 8 Ratio (12-20); Blood Urea Nitrogen 5 mg/dL (9-23); Calcium 7.8 mg/dL (8.3-10.6); Calcium (Corrected) 8.6 mg/dL (8.5-10.1); Carbon Dioxide 26.4 mMol/L (20.0-31.0); Chloride 96 mMol/L (98-107); Creatinine (Component) 0.6 mg/dL (0.6-1.3); Estimated Creatinine Clearance 137.5 mL/min (>60); Glucose 113 mg/dL (74-106); Osmolality,Calculated 257 (275-295); Phosphorous 3.5 mg/dL (2.4-5.1); Potassium 3.8 mMol/L (3.4-5.1); Sodium 129 mMol/L (136-145); eGFR > 60 See Note
[2025-01-28 05:52] LABS: Basophils # (Auto) 0.0 Thou/mm3 (0.0-0.2); Basophils % (Auto) 1 % (0-2.5); Eosinophils # (Auto) 0.0 Thou/mm3 (0.0-0.5); Eosinophils % (Auto) 1 % (0-10); Hematocrit 33.5 % (36.0-46.0); Hemoglobin 11.2 g/dL (12.0-16.0); Immature Granulocytes Auto 0.02 Thou/mm3 (0.00-0.00); Lymphocytes # (Auto) 1.0 Thou/mm3 (1.0-4.8); Lymphocytes % (Auto) 22 % (10-50); Mean Corpuscular HGB Conc 33.4 g/dl (31.0-37.0); Mean Corpuscular Hemoglobin 29.7 pg (25.0-35.0); Mean Corpuscular Volume 89 fL (80-100); Monocytes # (Auto) 0.6 Thou/mm3 (0.0-0.8); Monocytes % (Auto) 13 % (0-12); Neutrophils # (Auto) 2.9 Thou/mm3 (1.8-7.7); Neutrophils % (Auto) 63 % (37-80); Nucleated Red Blood Cell # 0.00 Thou/mm3 (0.00-0.00); Nucleated Red Blood Cell % 0 /100 WBC (0); Platelet Count 112 Thou/mm3 (140-440); RDW Standard Deviation 51.4 fL (36.4-46.3); Red Blood Count 3.77 Miln/mm3 (4.00-5.20); White Blood Count 4.6 Thou/mm3 (3.6-11.0)
[2025-01-28] MEDS: guaiFENesin SYRUP 200 MG/10 ML UDC PO ×4 (05:57→23:06)
[2025-01-28] MEDS: THIAMINE INJ 500 MG in SODIUM CHLORIDE 0.9% 100 ML 210 MG IV ×3 (05:57→23:07)
[2025-01-28] MEDS: DIAZEPAM INJ 5 MG/ML VIAL 2 ML 2.5 MG IVP ×5 (06:18→23:06)
[2025-01-28 06:27] LABS: Alanine Aminotransferase 15 U/L (10-49); Albumin, Serum 2.9 gm/dL (3.5-5.0); Albumin/Globulin Ratio 1.3 (1.2-2.2); Alkaline Phosphatase 71 U/L (46-116); Anion Gap 9 (7-16); Aspartate Amino Transferase 19 U/L (0-34); BUN/Creatinine Ratio 10 Ratio (12-20); Bilirubin,Total 0.7 mg/dL (0.3-1.2); Blood Urea Nitrogen 6 mg/dL (9-23); Calcium 7.8 mg/dL (8.3-10.6); Calcium (Corrected) 8.7 mg/dL (8.5-10.1); Carbon Dioxide 25.0 mMol/L (20.0-31.0); Chloride 96 mMol/L (98-107); Creatinine (Component) 0.6 mg/dL (0.6-1.3); Estimated Creatinine Clearance 137.5 mL/min (>60); Globulin 2.3 gm/dL (2.3-3.5); Glucose 113 mg/dL (74-106); Magnesium 1.9 mg/dL (1.6-2.6); Osmolality,Calculated 259 (275-295); Phosphorous 3.5 mg/dL (2.4-5.1); Potassium 3.9 mMol/L (3.4-5.1); Sodium 130 mMol/L (136-145); Total Protein 5.2 gm/dL (5.7-8.2); eGFR > 60 See Note
[2025-01-28] MEDS: NICOTINE PATCH 21 MG/24 HR PATCH.TD24 TOP (08:38)
[2025-01-28] MEDS: ENOXAPARIN SOD INJ 40 MG/0.4 ML SYRINGE SC ×2 (08:38→23:08)
[2025-01-28] MEDS: ACETAMINOPHEN 500 MG TABLET 1000 MG PO (11:01)
--- NOTE | 2025-01-28 12:03 | ESPR_ITS ---
<Statement entered by Jackson Michelle MD - 01/31/25 14:18> I reviewed above note and agree with findings and plans. I have also personally examined the patient with medicine team and went over assessment and plan with medical team including quality internship and resident physician. <Statement entered by Sam Howe MD - 01/28/25 15:38> No acute overnight events. Seen and examined at bedside in patient appears calm and no evidence of asterixis on exam. However, previously was given lorazepam for CIWA score of 10 and will continue to monitor for signs of withdrawal with CIWA protocol and Librium 25 mg 3 times daily. Otherwise, anticipate discharge within next 24 to 48 hours ----- Note reviewed and agree with care plan as documented. Please refer to the note below for further details. Plan discussed with attending physician Dr. Miguel Angel Howe MD PGY-2 Internal Medicine Documentation for date of: 01/28/25 Subjective Subjective Interval history: Patient continues to have anxiety and agitation, difficulty sleeping. Denies nausea, vomiting, headaches, abnormal sensations along skin. Tremors have resolved. Patient received 3-4 Valium doses overnight for CIWA 11 and which is improving. Patient feels weak and was reported to be holding on furniture while walking in the room. Exam Vital Signs Temp Pulse Resp BP Pulse Ox O2 Del Method 97.6 F 96 21 H 127/95 H 99 Room Air 01/28/25 11:47 01/28/25 11:56 01/28/25 11:56 01/28/25 11:47 01/28/25 11:56 01/28/25 11:47 Narrative Exam Constitutional Alert, oriented x 3 and anxious. Obese, middle-aged female HEENT Vision grossly intact. Patent nares. Trachea midline Respiratory CTAB Cardiovascular S1 and S2 audible, RRR. No murmurs carotid bruit. No gross JVD. Abdominal Soft, obese and non tender to palpation in all quadrants. Umbilicus everted and rectus sheath diastasis. BS + Genitourinary No bladder tenderness, no flank pain. Normal to palpation Musculoskeletal Extremities tone within normal limits. No LE edema. Neurological CN II - XII grossly intact. Extremity motor and sensation grossly intact. NIHSS 0 Skin Warm, dry and intact. No apparent lesions. Psychiatric Patient has good affect, is cooperative Objective Labs 01/28/25 05:00 01/28/25 05:00 Labs: Laboratory Results - last 24 hr 01/27/25 01/27/25 01/27/25 12:07 18:20 21:16 WBC RBC Hgb Hct MCV MCH MCHC RDW Std Deviation Plt Count Neut % (Auto) Lymph % (Auto) [place] % (Auto) Eos % (Auto) Baso % (Auto) Neut # (Auto) Lymph # (Auto) [place] # (Auto) Eos # (Auto) Baso # (Auto) Immature Gran # (Auto) Absolute Nucleated RBC Immature Gran % Nucleated RBC % Sodium 126 L 128 L 128 L Potassium 3.7 D 4.1 3.7 Chloride 94 L 95 L 96 L Carbon Dioxide 23.8 24.2 26.0 Anion Gap 8 9 6 L BUN 5 L < 5 L < 5 L Creatinine 0.6 0.7 0.6 Estim Creat Clear Calc 137.5 117.8 137.5 eGFR > 60 > 60 > 60 BUN/Creatinine Ratio 8 L 7 L 8 L Glucose 169 H 171 H 104 D Calculated Osmolality 254 L 258 L 254 L Calcium 7.9 L 7.9 L 8.5 Corrected Calcium 8.7 8.7 9.1 Phosphorus 1.0 L 2.6 2.2 L Magnesium Total Bilirubin AST ALT Alkaline Phosphatase Total Protein Albumin 3.0 L 3.0 L 3.2 L Globulin Albumin/Globulin Ratio 01/28/25 01/28/25 01:46 05:00 WBC 4.6 RBC 3.77 L Hgb 11.2 L Hct 33.5 L MCV 89 MCH 29.7 MCHC 33.4 RDW Std Deviation 51.4 H Plt Count 112 L D Neut % (Auto) 63 Lymph % (Auto) 22 [place] % (Auto) 13 H Eos % (Auto) 1 Baso % (Auto) 1 Neut # (Auto) 2.9 Lymph # (Auto) 1.0 [place] # (Auto) 0.6 Eos # (Auto) 0.0 Baso # (Auto) 0.0 Immature Gran # (Auto) 0.02 H Absolute Nucleated RBC 0.00 Immature Gran % 0 Nucleated RBC % 0 Sodium 129 L 130 L Potassium 3.8 3.9 Chloride 96 L 96 L Carbon Dioxide 26.4 25.0 Anion Gap 7 9 BUN 5 L 6 L Creatinine 0.6 0.6 Estim Creat Clear Calc 137.5 137.5 eGFR > 60 > 60 BUN/Creatinine Ratio 8 L 10 L Glucose 113 H 113 H Calculated Osmolality 257 L 259 L Calcium 7.8 L 7.8 L Corrected Calcium 8.6 8.7 Phosphorus 3.5 3.5 Magnesium 1.9 Total Bilirubin 0.7 AST 19 ALT 15 Alkaline Phosphatase 71 Total Protein 5.2 L Albumin 3.0 L 2.9 L Globulin 2.3 Albumin/Globulin Ratio 1.3 ABG Interpretation ABG results: 01/26/25 14:23 ABG pH 7.54 H ABG pCO2 36 ABG pO2 68 L ABG HCO3 31 H ABG O2 Saturation 95 ABG Base Excess 8 H Quality Measures Quality Measures none Assessment & Plan Assessment Current Active Medications: Generic Name Dose Route Start Last Admin Trade Name Freq PRN Reason Stop Dose Admin Acetaminophen 1,000 mg 01/27/25 18:27 01/28/25 11:01 Acetaminophen 500 Mg Tablet PO 02/26/25 18:26 1,000 mg Q6HR PRN Administration pain 1-3 or fever >99.9 Albuterol/Ipratropium 3 ml 01/26/25 19:00 01/28/25 11:55 Albuterol/Ipratropium (Duoneb) Rt Deya 3 Ml Nebu INH 02/25/25 18:59 3 ml Q6HRRT ROSALBA Administration Chlordiazepoxide HCl 25 mg 01/27/25 17:00 01/28/25 05:58 Chlordiazepoxide Hcl 25 Mg Capsule PO 02/01/25 16:59 25 mg Q8HR ROSALBA Administration Diazepam 10 mg 01/26/25 14:01 Diazepam Inj 5 Mg/Ml Vial 2 Ml IVP 01/31/25 14:00 Q1HR PRN CIWA 20-25 Diazepam 5 mg 01/27/25 15:51 Diazepam Inj 5 Mg/Ml Vial 2 Ml IVP 02/01/25 15:50 Q2HR PRN CIWA SCORE 14-19 Diazepam 2.5 mg 01/27/25 16:13 01/28/25 11:06 Diazepam Inj 5 Mg/Ml Vial 2 Ml IVP 01/31/25 14:00 2.5 mg Q2HR PRN Administration CIWA SCORE 8 to 13 Enoxaparin Sodium 40 mg 01/27/25 21:00 01/28/25 08:38 Enoxaparin Sod Inj 40 Mg/0.4 Ml Syringe SC 02/10/25 20:59 40 mg BID ROSALBA Administration Guaifenesin 200 mg 01/27/25 12:00 01/28/25 11:02 Guaifenesin Syrup 200 Mg/10 Ml Udc PO 02/26/25 11:59 200 mg QID ROSALBA Administration Protocol Thiamine HCl 500 mg/ Sodium 105 mls @ 210 mls/hr 01/27/25 08:45 01/28/25 05:57 Chloride IV 01/29/25 08:44 210 mls/hr TID ROSALBA Administration Nicotine 21 mg 01/26/25 17:30 01/28/25 08:38 Nicotine Patch 21 Mg/24 Hr Patch.Td24 TOP 02/25/25 17:29 21 mg QDAY ROSALBA Administration Plan Zari Carreno is a 54-year-old F with a PMH of hypertension, suspected congestive heart failure, hypothyroidism, breast cancer status post bilateral- mastectomy, and significant ongoing smoking history who presented to the [facility] ED with a chief complaint of feeling foggy and just out of it and being unable to urinate. A stroke alert was called after patient was noticed to have dysarthria on exam and teleneurology was consulted. Patient's NIHSS score was 0 and teleneurology endorsed low suspicion of an acute infarct, recommending the pursuit of a metabolic workup instead. However, patient, whose blood pressure had been normotensive 137/94 upon admission, began having significant hypotension in the setting of elevated lactate 2.3, prompting her ICU admission and being started on Levophed. Nephrology was consulted and they recommended NS maintenance fluid at 100 mL/h. Patient was admitted for the work-up and management of undifferentiated shock requiring pressor support in the setting of severe hypoosmolar hyponatremia, severe hypokalemia, and severe hypochloremia. #Hypoosmolar hypochloremic hyponatremia #Hypokalemia #Hypophosphatemia DDx: Beer potomania, medication induced-Lasix/DREA/ARB, gabapentin + admission CMP showed sodium 119, potassium 2.3, chloride 77, normal CO2 29.7, normal anion gap 12, calculated osmolality 240. + UA showed urine specific gravity 1.031, normal random creatinine 110, low random sodium less than 15.0, normal random potassium 20, low random chloride less than 20.0, and low random urea nitrogen 145.0. + 01/27 NA 127, K3.3, Phos 2.1, Mg 2.4; given Neutra-Phos x2 + 01/28 Na 130, K+ 3.9, Phos 3.5, Mg 1.9 ? Continue 1200 cc/day fluid restriction #Hypotension, resolved Normotensive 137/94 upon admission, began having significant hypotension in the setting of elevated lactate 2.3, prompting her to be started on Levophed. Lactic acid downtrended from 2.3 to 1.5 on 01/26 (same day as admission) #Acute metabolic encephalopathy?resolving #Alcohol withdrawal #Stroke ruled out DDx: Symptomatic hyponatremia, Wernicke's encephalopathy + head CT was negative for acute hemorrhage, mass effect, or midline shift. + venous Doppler study was negative for deep vein thrombosis. + head/neck CTA was negative for significant neck arterial stenoses, cerebral arterial large vessel occlusions, or thrombus. + Started drinking in her 30s and still drinks with an average of 6 to 10 cans of beer per night Plan: - CIWA protocol ? Scheduled Librium 25 mg p.o. 3 times daily - diazepam 2.5mg for CIWA 8-13 Q2h, 5mg for CIWA 14-19 Q2h, and 10mg CIWA 20-25 Q1h PRN ? Thiamine 500 mg IV 3 times daily for 2 days followed by thiamine 200 mg IV for 5 days -Monitor for breakthrough alcohol withdrawal symptoms (especially seizures) #Hypoalbuminemia 01/28: eGFR >60, Cr 0.6, BUN/Cr 10, and albumin 2.9 (downtrending) +possible etiologies include glomerulonephrosis and malnutrition secondary to chronic alcohol use. -Spoke with ladies' locker room attendant Dr. Barkley who said patient's kidney function is in good standing with eGFR greater than 60, BUN and creatinine within normal limits. Hypoalbuminemia related to malnutrition secondary to chronic alcohol use. - Ordered random urine protein and creatinine for assessment of proteinuria #Chronic tobacco dependence -DuoNebs scheduled Q6 hourly, nicotine patch #Morbid obesity BMI 50.7 -Recommend starting GLP agonist as outpatient and also possible bariatric surgery consultation. #Hypothyroidism TSH 4.96 -Will resume home medication, pending reconciliation Health maintenance: Dispo: Na checks q4hrly, CIWA. Diet: Tube feeds via OGT DVT ppx: Enoxaparin 40mg SC BID GI ppx: none IV lines: 2 pIV Wells: Yes (started 01/26/25- Code status: FULL CODE This case was discussed with my attending physician, Dr. Michelle, and senior resident Dr. Falcon. Beatriz Sotelo, DO PGY I
--- NOTE | 2025-01-28 19:45 | PD.NEPHCONS ---
History of Present Illness Data of Consult Requesting Physician: Jackson Michelle MD Primary Care Provider: Physician No Primary/Family Consult Narrative History of present illness: 54-year-old female with past medical history of hypertension, suspected congestive heart failure, hypothyroidism, breast cancer status post mastectomy, chronic active smoker and hypokalemia who presented to [facility] emergency department with a chief complaint of symptoms of dizziness. Nephrology was called from ER for hyponatremia. cc:: cc: Jackson Michelle MD Meds Home Medications and Allergies Home Medications ?Medication ?Instructions ?Recorded ?Confirmed ?Type benazepril 40 mg tablet 40 mg PO DAILY 01/27/25 01/27/25 History furosemide 40 mg tablet 40 mg PO DAILY 01/27/25 01/27/25 History levothyroxine 75 mcg tablet 75 mcg PO DAILY 01/27/25 01/27/25 History metoprolol tartrate 50 mg tablet 50 mg PO BID 01/27/25 01/27/25 History potassium chloride 8 mEq 8 meq PO DAILY 01/27/25 01/27/25 History capsule,extended release Allergies Allergy/AdvReac Type Severity Reaction Status Date / Time No Known Allergies Allergy Verified 01/26/25 09:01 Exam Vital Signs Temp Pulse Resp BP Pulse Ox O2 Del Method 97.6 F 99 22 H 146/95 H 99 Room Air 01/28/25 16:00 01/28/25 18:41 01/28/25 18:41 01/28/25 16:00 01/28/25 18:41 01/28/25 16:00 Results Labs 01/28/25 05:00 01/28/25 05:00 Labs: Short CBC 01/28/25 Range/Units 05:00 WBC 4.6 (3.6-11.0) Thou/mm3 Hgb 11.2 L (12.0-16.0) g/dL Hct 33.5 L (36.0-46.0) % Plt Count 112 L D (140-440) Thou/mm3 BMP 01/27/25 01/28/25 01/28/25 21:16 01:46 05:00 Sodium 128 L 129 L 130 L Potassium 3.7 3.8 3.9 Chloride 96 L 96 L 96 L Carbon Dioxide 26.0 26.4 25.0 BUN < 5 L 5 L 6 L Creatinine 0.6 0.6 0.6 Glucose 104 D 113 H 113 H Calcium 8.5 7.8 L 7.8 L Liver Function 01/27/25 01/28/25 01/28/25 Range/Units 21:16 01:46 05:00 Total Bilirubin 0.7 (0.3-1.2) mg/dL AST 19 (0-34) U/L ALT 15 (10-49) U/L Alkaline Phosphatase 71 (46-116) U/L Albumin 3.2 L 3.0 L 2.9 L (3.5-5.0) gm/dL ABG Interpretation ABG results: 01/26/25 14:23 ABG pH 7.54 H ABG pCO2 36 ABG pO2 68 L ABG HCO3 31 H ABG O2 Saturation 95 ABG Base Excess 8 H Assessment & Plan Assessment and plan (1) Acute hyponatremia: Status: Acute Assessment and plan: Na is improving. Initially recommended to give NS Kidney function stable UA is negative for proteinuria Discussed with jackeline on medicine tre today. all his questions are answered c/w supportive care
[2025-01-28] MEDS: MELATONIN 3 MG TABLET 6 MG PO (23:08)
[2025-01-29] VITALS (12 sets, daily range): BP systolic 115–163; BP diastolic 78–95; PULSE 78–100; RESP 10–97; TEMP 36.1–37; O2SAT 93–100; BMI 50.6
[2025-01-29] MEDS: ALBUTEROL/IPRATROPIUM (Duoneb) RT SOL 3 ML NEBU INH ×3 (00:08→12:45)
[2025-01-29] MEDS: DIAZEPAM INJ 5 MG/ML VIAL 2 ML 2.5 MG IVP ×3 (01:12→09:17)
[2025-01-29] MEDS: THIAMINE INJ 500 MG in SODIUM CHLORIDE 0.9% 100 ML 210 MG IV (05:49)
[2025-01-29] MEDS: guaiFENesin SYRUP 200 MG/10 ML UDC PO ×4 (05:49→20:58)
[2025-01-29 06:10] LABS: Basophils # (Auto) 0.0 Thou/mm3 (0.0-0.2); Basophils % (Auto) 1 % (0-2.5); Eosinophils # (Auto) 0.0 Thou/mm3 (0.0-0.5); Eosinophils % (Auto) 1 % (0-10); Hematocrit 37.5 % (36.0-46.0); Hemoglobin 12.4 g/dL (12.0-16.0); Immature Granulocytes Auto 0.02 Thou/mm3 (0.00-0.00); Lymphocytes # (Auto) 0.8 Thou/mm3 (1.0-4.8); Lymphocytes % (Auto) 16 % (10-50); Mean Corpuscular HGB Conc 33.1 g/dl (31.0-37.0); Mean Corpuscular Hemoglobin 30.0 pg (25.0-35.0); Mean Corpuscular Volume 91 fL (80-100); Monocytes # (Auto) 0.4 Thou/mm3 (0.0-0.8); Monocytes % (Auto) 9 % (0-12); Neutrophils # (Auto) 3.6 Thou/mm3 (1.8-7.7); Neutrophils % (Auto) 73 % (37-80); Nucleated Red Blood Cell # 0.00 Thou/mm3 (0.00-0.00); Nucleated Red Blood Cell % 0 /100 WBC (0); Platelet Count 123 Thou/mm3 (140-440); RDW Standard Deviation 52.9 fL (36.4-46.3); Red Blood Count 4.14 Miln/mm3 (4.00-5.20); White Blood Count 4.9 Thou/mm3 (3.6-11.0)
[2025-01-29 06:25] LABS: Albumin, Serum 3.2 gm/dL (3.5-5.0); Anion Gap 9 (7-16); BUN/Creatinine Ratio 12 Ratio (12-20); Blood Urea Nitrogen 7 mg/dL (9-23); Calcium 8.4 mg/dL (8.3-10.6); Calcium (Corrected) 9.0 mg/dL (8.5-10.1); Carbon Dioxide 26.3 mMol/L (20.0-31.0); Chloride 97 mMol/L (98-107); Creatinine (Component) 0.6 mg/dL (0.6-1.3); Estimated Creatinine Clearance 137.5 mL/min (>60); Glucose 101 mg/dL (74-106); Magnesium 1.9 mg/dL (1.6-2.6); Osmolality,Calculated 262 (275-295); Phosphorous 4.0 mg/dL (2.4-5.1); Potassium 3.6 mMol/L (3.4-5.1); Sodium 132 mMol/L (136-145); eGFR > 60 See Note
--- NOTE | 2025-01-29 08:10 | PC.NURSE ---
PATIENT DENIES HAVING A CENTRAL LINE.
[2025-01-29] MEDS: NICOTINE PATCH 21 MG/24 HR PATCH.TD24 TOP (08:38)
[2025-01-29] MEDS: ENOXAPARIN SOD INJ 40 MG/0.4 ML SYRINGE SC ×2 (08:38→20:59)
[2025-01-29] MEDS: ONDANSETRON INJ 2 MG/ML INJ 2 ML 4 MG IVP (09:17)
[2025-01-29] MEDS: Magnesium Sulfate 4 GM Ivpb 4 GM/50 ML BAG IV (10:10)
[2025-01-29] MEDS: ACETAMINOPHEN 500 MG TABLET 1000 MG PO (11:49)
--- NOTE | 2025-01-29 14:43 | ESPR_ITS ---
<Statement entered by Jackson Michelle MD - 02/11/25 09:05> I reviewed above note and agree with findings and plans. I have also personally examined the patient with medicine team and went over assessment and plan with medical team including winter intern and resident physician. <Statement entered by Sam Howe MD - 01/29/25 15:38> No acute overnight events. Seen and examined at bedside and patient appears to be anxious and does have slight tremor on examination. Remains on CIWA protocol, scores fluctuating between 5 and 9, continues to receive lorazepam and scheduled Librium 25 mg 3 times daily. Anticipate discharge within next 24 to 48 hours. Otherwise, vital signs stable and labs largely unremarkable. ----- Note reviewed and agree with care plan as documented. Please refer to the note below for further details. Plan discussed with attending physician Dr. Miguel Angel Howe MD PGY-2 Internal Medicine Documentation for date of: 01/29/25 Subjective Subjective Interval history: Patient continues to have anxiety and agitation, difficulty sleeping. Patient has nausea, heightened sensitivity to lighting. Denies vomiting, abnormal sensations along skin. Tremers present in left hand. Patient received 3-4 Valium doses overnight for CIWA >8 and which is improving. Patient feels weak and has to hold on furniture while walking in the room. Exam Vital Signs Temp Pulse Resp BP Pulse Ox O2 Del Method 96.9 F 83 18 115/86 H 100 Room Air 01/29/25 12:00 01/29/25 12:45 01/29/25 12:45 01/29/25 12:00 01/29/25 12:45 01/29/25 12:00 Narrative Exam Constitutional Alert, oriented x 3 and anxious. Obese, middle-aged female HEENT Vision grossly intact. Patent nares. Trachea midline Respiratory CTAB Cardiovascular S1 and S2 audible, RRR. No murmurs carotid bruit. No gross JVD. Abdominal Soft, obese and non tender to palpation in all quadrants. Umbilicus everted and rectus sheath diastasis. BS + Genitourinary No bladder tenderness, no flank pain. Normal to palpation Musculoskeletal Extremities tone within normal limits. No LE edema. Neurological CN II - XII grossly intact. Extremity motor and sensation grossly intact. NIHSS 0 Skin Warm, dry and intact. No apparent lesions. Psychiatric Patient has good affect, is cooperative Objective Labs 01/29/25 05:11 01/29/25 05:11 Labs: Laboratory Results - last 24 hr 01/29/25 05:11 WBC 4.9 RBC 4.14 Hgb 12.4 Hct 37.5 MCV 91 MCH 30.0 MCHC 33.1 RDW Std Deviation 52.9 H Plt Count 123 L Neut % (Auto) 73 Lymph % (Auto) 16 [place] % (Auto) 9 Eos % (Auto) 1 Baso % (Auto) 1 Neut # (Auto) 3.6 Lymph # (Auto) 0.8 L [place] # (Auto) 0.4 Eos # (Auto) 0.0 Baso # (Auto) 0.0 Immature Gran # (Auto) 0.02 H Absolute Nucleated RBC 0.00 Immature Gran % 0 Nucleated RBC % 0 Sodium 132 L Potassium 3.6 Chloride 97 L Carbon Dioxide 26.3 Anion Gap 9 BUN 7 L Creatinine 0.6 Estim Creat Clear Calc 137.5 eGFR > 60 BUN/Creatinine Ratio 12 Glucose 101 Calculated Osmolality 262 L Calcium 8.4 Corrected Calcium 9.0 Phosphorus 4.0 Magnesium 1.9 Albumin 3.2 L ABG Interpretation ABG results: 01/26/25 14:23 ABG pH 7.54 H ABG pCO2 36 ABG pO2 68 L ABG HCO3 31 H ABG O2 Saturation 95 ABG Base Excess 8 H Quality Measures Quality Measures none Assessment & Plan Assessment Current Active Medications: Generic Name Dose Route Start Last Admin Trade Name Freq PRN Reason Stop Dose Admin Acetaminophen 1,000 mg 01/27/25 18:27 01/29/25 11:49 Acetaminophen 500 Mg Tablet PO 02/26/25 18:26 1,000 mg Q6HR PRN Administration pain 1-3 or fever >99.9 Albuterol/Ipratropium 3 ml 01/26/25 19:00 01/29/25 12:45 Albuterol/Ipratropium (Duoneb) Rt Deya 3 Ml Nebu INH 02/25/25 18:59 3 ml Q6HRRT ROSALBA Administration Chlordiazepoxide HCl 25 mg 01/27/25 17:00 01/29/25 13:23 Chlordiazepoxide Hcl 25 Mg Capsule PO 02/01/25 16:59 25 mg Q8HR ROSALBA Administration Enoxaparin Sodium 40 mg 01/27/25 21:00 01/29/25 08:38 Enoxaparin Sod Inj 40 Mg/0.4 Ml Syringe SC 02/10/25 20:59 40 mg BID ROSALBA Administration Guaifenesin 200 mg 01/27/25 12:00 01/29/25 11:37 Guaifenesin Syrup 200 Mg/10 Ml Udc PO 02/26/25 11:59 200 mg QID ROSALBA Administration Protocol Lorazepam 0.5 mg 01/29/25 10:29 01/29/25 11:49 Lorazepam 0.5 Mg Tablet PO 02/03/25 10:28 0.5 mg Q4HR PRN Administration CIWA 5-9 Lorazepam 1 mg 01/29/25 10:29 Lorazepam 0.5 Mg Tablet PO 02/03/25 10:28 Q4HR PRN CIWA 10-15 Lorazepam 2 mg 01/29/25 10:29 Lorazepam 0.5 Mg Tablet PO 02/03/25 10:28 Q4HR PRN CIWA 16-20 Nicotine 21 mg 01/26/25 17:30 01/29/25 08:38 Nicotine Patch 21 Mg/24 Hr Patch.Td24 TOP 02/25/25 17:29 21 mg QDAY ROSALBA Administration Ondansetron HCl 4 mg 01/29/25 08:49 01/29/25 09:17 Ondansetron Inj 2 Mg/Ml Inj 2 Ml IVP 02/28/25 08:48 4 mg Q6HR PRN Administration NAUSEA OR VOMITING Protocol Potassium Chloride 40 meq 01/29/25 17:30 Potassium Chloride 20 Meq Tabcr PO 02/28/25 17:29 BIDWM ROSALBA Plan Zari Carreno is a 54-year-old F with a PMH of hypertension, suspected congestive heart failure, hypothyroidism, breast cancer status post bilateral- mastectomy, and significant ongoing smoking history who presented to the [facility] ED with a chief complaint of feeling foggy and just out of it and being unable to urinate. A stroke alert was called after patient was noticed to have dysarthria on exam and teleneurology was consulted. Patient's NIHSS score was 0 and teleneurology endorsed low suspicion of an acute infarct, recommending the pursuit of a metabolic workup instead. However, patient, whose blood pressure had been normotensive 137/94 upon admission, began having significant hypotension in the setting of elevated lactate 2.3, prompting her ICU admission and being started on Levophed. Nephrology was consulted and they recommended NS maintenance fluid at 100 mL/h. Patient was admitted for the work-up and management of undifferentiated shock requiring pressor support in the setting of severe hypoosmolar hyponatremia, severe hypokalemia, and severe hypochloremia. #Alcohol withdrawal #Acute metabolic encephalopathy?resolving #Stroke ruled out DDx: Symptomatic hyponatremia, Wernicke's encephalopathy + head CT was negative for acute hemorrhage, mass effect, or midline shift. + venous Doppler study was negative for deep vein thrombosis. + head/neck CTA was negative for significant neck arterial stenoses, cerebral arterial large vessel occlusions, or thrombus. + Started drinking in her 30s and still drinks with an average of 6 to 10 cans of beer per night Plan: - CIWA protocol in place - Scheduled Librium PO 25mg TID - Ativan .5mg for CIWA 5-9 Q4h, 1mg for CIWA 10-15 Q4h, and 2mg CIWA 16-20 Q4h PRN - Thiamine 500mg TID x2d, followed by thiamine IV 200mg x5d - Monitor for breakthrough alcohol withdrawal symptoms (especially, seizures) #Hypoosmolar hypochloremic hyponatremia #Hypokalemia #Hypophosphatemia DDx: Beer potomania, medication induced-Lasix/DREA/ARB, gabapentin + admission CMP showed sodium 119, potassium 2.3, chloride 77, normal CO2 29.7, normal anion gap 12, calculated osmolality 240. + UA showed urine specific gravity 1.031, normal random creatinine 110, low random sodium less than 15.0, normal random potassium 20, low random chloride less than 20.0, and low random urea nitrogen 145.0. + 9/7 NA 127, K3.3, Phos 2.1, Mg 2.4; given Neutra-Phos x2 + 9/8 Na 130, K+ 3.9, Phos 3.5, Mg 1.9 + 9/9 Na 132, K+ 3.6, PO4 3.5, Mg 1.9 ? Continue 1200 cc/day fluid restriction #Hypotension, resolved Normotensive 137/94 upon admission, began having significant hypotension in the setting of elevated lactate 2.3, prompting her to be started on Levophed. Lactic acid downtrended from 2.3 to 1.5 on 01/26 (same day as admission) #Hypoalbuminemia 01/28: eGFR >60, Cr 0.6, BUN/Cr 10, and albumin 2.9 (downtrending) +possible etiologies include glomerulonephrosis and malnutrition secondary to chronic alcohol use. -Spoke with body straightener Dr. Barkley who said patient's kidney function is in good standing with eGFR greater than 60, BUN and creatinine within normal limits. Hypoalbuminemia related to malnutrition secondary to chronic alcohol use. - Ordered random urine protein and creatinine for assessment of proteinuria #Chronic tobacco dependence -DuoNebs scheduled Q6 hourly, nicotine patch #Morbid obesity BMI 50.7 -Recommend starting GLP agonist as outpatient and also possible bariatric surgery consultation. #Hypothyroidism TSH 4.96 -Will resume home medication, pending reconciliation Health maintenance: Dispo: Na checks q4hrly, CIWA. Diet: Tube feeds via OGT DVT ppx: Enoxaparin 40mg SC BID GI ppx: none IV lines: 2 pIV Wells: Yes (started 01/26/25- Code status: FULL CODE This case was discussed with my attending physician, Dr. Michelle, and senior resident Dr. Falcon. Beatriz Sotelo, DO PGY I
--- NOTE | 2025-01-29 16:28 | PC.PT ---
Patient is safe to ambulate to the bathroom and in the halls with 1 staff and a FWW. RN made aware.
[2025-01-29] MEDS: GABAPENTIN 100 MG CAPSULE PO (17:27)
--- NOTE | 2025-01-29 18:20 | PC.NURSE ---
PATIENT VOIDED 100 ML, BLADDER SCAN SHOWED 125 ML.
[2025-01-30] VITALS (7 sets, daily range): BP systolic 133–153; BP diastolic 87–100; PULSE 76–112; RESP 13–99; TEMP 36.1–36.6; O2SAT 94–100
[2025-01-30 05:17] LABS: Creatinine,Random Urine 120 mg/dL (30-125); Protein Total, Random Urine 20 mg/dL (1-14)
[2025-01-30] MEDS: guaiFENesin SYRUP 200 MG/10 ML UDC PO (05:29)
[2025-01-30 06:09] LABS: Basophils # (Auto) 0.0 Thou/mm3 (0.0-0.2); Basophils % (Auto) 0 % (0-2.5); Eosinophils # (Auto) 0.1 Thou/mm3 (0.0-0.5); Eosinophils % (Auto) 1 % (0-10); Hematocrit 39.7 % (36.0-46.0); Hemoglobin 12.9 g/dL (12.0-16.0); Immature Granulocytes Auto 0.03 Thou/mm3 (0.00-0.00); Lymphocytes # (Auto) 0.8 Thou/mm3 (1.0-4.8); Lymphocytes % (Auto) 18 % (10-50); Mean Corpuscular HGB Conc 32.5 g/dl (31.0-37.0); Mean Corpuscular Hemoglobin 29.5 pg (25.0-35.0); Mean Corpuscular Volume 91 fL (80-100); Monocytes # (Auto) 0.5 Thou/mm3 (0.0-0.8); Monocytes % (Auto) 11 % (0-12); Neutrophils # (Auto) 3.1 Thou/mm3 (1.8-7.7); Neutrophils % (Auto) 69 % (37-80); Nucleated Red Blood Cell # 0.00 Thou/mm3 (0.00-0.00); Nucleated Red Blood Cell % 0 /100 WBC (0); Platelet Count 124 Thou/mm3 (140-440); RDW Standard Deviation 53.5 fL (36.4-46.3); Red Blood Count 4.37 Miln/mm3 (4.00-5.20); White Blood Count 4.6 Thou/mm3 (3.6-11.0)
[2025-01-30] MEDS: ALBUTEROL/IPRATROPIUM (Duoneb) RT SOL 3 ML NEBU INH ×2 (06:33→12:18)
[2025-01-30 06:45] LABS: Anion Gap 10 (7-16); BUN/Creatinine Ratio 11 Ratio (12-20); Blood Urea Nitrogen 8 mg/dL (9-23); Calcium 8.7 mg/dL (8.3-10.6); Carbon Dioxide 24.2 mMol/L (20.0-31.0); Chloride 97 mMol/L (98-107); Creatinine (Component) 0.7 mg/dL (0.6-1.3); Estimated Creatinine Clearance 119.5 mL/min (>60); Glucose 101 mg/dL (74-106); Osmolality,Calculated 260 (275-295); Potassium 5.2 mMol/L (3.4-5.1); Sodium 131 mMol/L (136-145); eGFR > 60 See Note
[2025-01-30] MEDS: NICOTINE PATCH 21 MG/24 HR PATCH.TD24 TOP (08:27)
[2025-01-30] MEDS: PATIROMER CALCIUM 8.4 GM PACKET PO (08:28)
[2025-01-30] MEDS: ENOXAPARIN SOD INJ 40 MG/0.4 ML SYRINGE SC (08:28)
--- NOTE | 2025-01-30 11:21 | PC.SS ---
Addendum entered by Teena Finch 01/30/25 15:44: update: Patient has previously been seen at [facility]. Most recently patient states she's been to the [facility]. Addendum entered by Teena Finch 01/30/25 15:43: Patient has d/c orders for today. Patient will d/c home and her daughter will be coming in from out of area to temporarily be with her. SS ordered rollator walker for patient. Patients spouse will transport home. Original Note: Patient needs a bariatric walker for home. The diagnosis creates mobility limitation that significantly impairs ability to participate in the patients activities of daily living either in their entirety, or in a reasonable time frame. Also the patient is able to safely use the walker and the patient?s mobility is sufficiently resolved with the use of the walker and cane has been ruled out.
--- NOTE | 2025-01-30 11:51 | ESDS_ITS ---
<Statement entered by Jackson Michelle MD - 02/11/25 09:06> I reviewed above note and agree with findings and plans. I have also personally examined the patient with medicine team and went over assessment and plan with medical team including sales management intern and resident physician. <Statement entered by Sam Howe MD - 01/30/25 13:40> Note reviewed and agree with care plan as documented. Please refer to the note below for further details. Plan discussed with attending physician Dr. Miguel Angel Howe MD PGY-2 Internal Medicine Planned Discharge Date 01/30/25 DS: Providers Provider Date of admission: 01/26/25 13:53 Primary care physician: Physician No Primary/Family Admitting Provider: Brendan Junior MD Attending Provider on Admission: Jackson Michelle MD Consults: 01/26/25 09:06 Consult to Neurology / Tele-Neurology Stat Comment: Consulting Provider: [facility] 01/26/25 10:04 Consult to Nephrology Stat Comment: Hyponatremia Consulting Provider: Maynor Mesa 01/28/25 04:46 Referral Physical Therapy Routine Comment: Physician Instructions: Attending Provider on DC: Madeleine Loza Discharging Provider: Madeleine Loza DS: Diagnosis Problem List Completed Was Problem List Reviewed/Reconciled?: Yes Hospital Course Hospital Course Hospital course: Zari Carreno, 54 year old female with past medical history of hypertension, hypothyroidism, breast cancer (status post bilateral mastectomy) was admitted to [facility] on 01/26/25 to rule out stroke as patient presented with unsteady gait, difficulty ambulating, and feeling of foggy and to manage alchohol withdrawls. Stroke alert called in emergency department, NIHSS 0 teleneurology endorsed low suspicion of CVA and recommended metabolic workup. In the ED patient had unremarkable vitals, severely low electrolytes, sodium 119, potassium 2.3, chloride 77, and magnesium 1.6. Patient was admitted for the work-up and management of undifferentiated shock requiring pressor support in the setting of severe hypoosmolar hyponatremia, severe hypokalemia, and severe hypochloremia. Electrolytes were repleted, and the patient was started on CIWA protocol along with Librium taper to manage alchohol withdraws. On 01/30/25, alchohol withdrwals were under control (CIWA score of no higher then 4-5), patient to be discharged with Naltrexone (50 mg) and to be followed by PCP within 1 week of discharge. Problem List: #Symptomatic hypoosmolar hypochloremic hyponatremia #Hypokalemia #Shock, undifferentiated #Hypotension #Elevated lactic acidosis #Alcohol abuse #Alcohol withdrawal #Chronic active smoker #Morbid obesity Discharge Instructions: ? Continue taking all other home medications as prescribed ? Follow-up with PCP within 1-2 weeks of discharge ? Started on gabapentin 300 mg at night for anxiety and alcohol use ? Started on naltrexone 50 mg daily for alcohol use ? If you do not have a PCP, you can follow-up at the [facility] (you can call [phone] to make an appointment) ? If you wish to follow-up with Dr. Sotelo, schedule appointment on Tuesdays - Avoid alcohol ? Return to ED if symptoms worsen or recur Care and discharge instructions discussed with my attending Dr. Michelle, and senior residents Dr. Bjorn Howe and Dr. Falcon. Alondra Suarez (OMS IV) Dr. Bjorn Howe (PYG II) Time Spent with Patient Time attestation: Total time spent providing and/or coordinating discharge services: Time spent: Greater than 30 minutes Exam Vital Signs Temp Pulse Resp BP Pulse Ox O2 Del Method 97.8 F 85 20 133/100 H 100 Room Air 01/30/25 08:00 01/30/25 08:00 01/30/25 08:00 01/30/25 08:00 01/30/25 08:00 01/30/25 08:00 Discharge Plan Plan Patient Disposition: HOME (Self Care) Care Plan Goals: ? Continue taking all other home medications as prescribed ? Follow-up with PCP within 1-2 weeks of discharge ? Started on gabapentin 300 mg at night for anxiety and alcohol use ? Started on naltrexone 50 mg daily for alcohol use ? If you do not have a PCP, you can follow-up at the [facility] (you can call [phone] to make an appointment) ? If you wish to follow-up with Dr. Sotelo, schedule appointment on Tuesdays ? Return to ED if symptoms worsen or recur Prescriptions/Referrals Prescriptions/Med Rec: New naltrexone 50 mg tablet 50 mg PO QDAY 15 Days Qty: 15 0RF gabapentin 300 mg capsule 300 mg PO HS Qty: 7 0RF Continued furosemide 40 mg tablet 40 mg PO DAILY Patient Comments: TAKE 1 TABLET BY MOUTH ONCE DAILY benazepril 40 mg tablet 40 mg PO DAILY metoprolol tartrate 50 mg tablet 50 mg PO BID Patient Comments: TAKE 1 TABLET BY MOUTH TWICE DAILY WITH MEALS potassium chloride 8 mEq capsule, extended release 8 meq PO DAILY Patient Comments: TAKE 1 CAPSULE BY MOUTH ONCE DAILY WITH FOOD levothyroxine 75 mcg tablet 75 mcg PO DAILY Referrals: No Primary/Family,Physician [Primary Care Provider] Patient/Caregiver Discharge Instructions Education Materials: Hyponatremia Dc Print Language: Chinese Stand Alone Forms: [employer] Info., Patient Portal Info Letter Discharge Order Discharge Orders: Discharge (Routine); Ordered 01/30/25 Ordered By: Sam Milan Ncmanisha Quality Discharge Quality Measures VTE prophylaxis
--- NOTE | 2025-02-04 11:31 | PC.SS ---
SS spoke to patient who called wanting home health services. SS explained that at this time she will need to ask her p.c.p. for a home health order. Patient confirmed she has an appt. this Tuesday with Dr. Pepe at 3p.m. and will ask to be set up with services.
--- NOTE | 2025-02-05 11:04 | PC.SS ---
SS received a call from pt stating she needs to [facility] but unable to get through. SS sent an email to [facility] in hopes to assist pt with appointment change
--- NOTE | 2025-02-06 15:42 | PC.CC ---
Received call from patient as Worker of the Day. She is asking for HH/PT and is confused about why it was not set up at discharge. She says she does not have a PCP, was seen by [facility] only via telehealth, and has an appointment to establish at the [facility] but not until 02/22. She states her partner is going to return to work and she will be alone in the home during the week and is unable to leave the house or shower without assistance. She has not been able to get through to the [facility]. Explained to patient that HH could not be started at discharge due to lack of PCP and she will need to establish with PCP and request HHPT at this time. S/W Erica @ [facility] who advised there are no sooner appointments due to reduced hours. Discussed w/ patient including other medical homes in [place] that accept her insurance. Provided her with [facility]'s number and advised her to call to establish, request HH/PT, and advise them of recent discharge from hospital and need to be seen as soon as possible. Advised patient that she can choose to keep the [facility] appointment or establish elsewhere. Also provided her with phone# for [facility] to request services.
[2025-02-18 07:10] LABS: Cortisol,total,LC/MS/MS* 16.8 mcg/dL
== END 2025-01-30 12:50 | disposition home or self-care (01) | DRG 426 ==
LOC: SERX 13:32 → S2NX 01-28 06:32 → S2SX 01-30 08:59 → SERHOLD 01-30 08:59
PROVIDERS: Student in an Organized Health Care Education/Training Program; Admitting Provider Internal Medicine Critical Care Medicine; Emergency Provider Emergency Medicine; Visit Provider Internal Medicine
DX: E87.1 Hypo-osmolality and hyponatremia (principal); R47.1 Dysarthria and anarthria; E87.4 Mixed disorder of acid-base balance; E87.6 Hypokalemia; E87.8 Other disorders of electrolyte and fluid balance, not elsewhere classified; I10 Essential (primary) hypertension; E03.9 Hypothyroidism, unspecified; Z85.3 Personal history of malignant neoplasm of breast; Z90.711 Acquired absence of uterus with remaining cervical stump; Z90.13 Acquired absence of bilateral breasts and nipples; F17.210 Nicotine dependence, cigarettes, uncomplicated; E86.1 Hypovolemia; G93.41 Metabolic encephalopathy; R57.1 Hypovolemic shock; F41.9 Anxiety disorder, unspecified; E88.09 Other disorders of plasma-protein metabolism, not elsewhere classified; F17.200 Nicotine dependence, unspecified, uncomplicated; G37.2 Central pontine myelinolysis; E46 Unspecified protein-calorie malnutrition; E83.39 Other disorders of phosphorus metabolism; E66.01 Morbid (severe) obesity due to excess calories; Z68.43 Body mass index [BMI] 50.0-59.9, adult; F10.239 Alcohol dependence with withdrawal, unspecified
CPT/HCPCS: 36415; 36600; 70450; 70496; 70498; 71045; 80048; 80053; 80061; 80069; 80307; 80320; 80329; 81001; 82140; 82436; 82533; 82550; 82570; 82803; 83036; 83605; 83735; 83880; 84100; 84133; 84156; 84295; 84300; 84439; 84443; 84484; 84540; 84550; 84703; 85025; 85610; 85730; 87081; 93005; 93306; 93970; 94640; 94664; 96365; 96366; 96375; 97162; 99285; A4314; A4649; A9270; J1650; J2405; J2597; J3360; J3411; J3475; J3480; J3490; J7030; J7042; J7050; J7120; J7131; J7999; Q9967; G0480

== ENCOUNTER → 2025-03-04 | Outpatient (CLI) | payer MEDICAID, SELFPAY ==
--- NOTE | 2025-03-04 10:14 | XR_ITS ---
EXAMINATION: Skull series 4 views TECHNIQUE: Ana, right lateral left lateral [facility] skull series 4 views Date and time: March 04, 2025, 10:25 a.m. INDICATIONS: Contusion to the right side of the head after falling 2 weeks ago FINDINGS: Cranial vault appears intact Facial bones appear intact. No abnormal intracranial calcifications IMPRESSION: No skull fracture depicted
== END | disposition home or self-care (01) ==
LOC: COPL 10:05 → CDIM 03-15 18:11
PROVIDERS: PCP Nurse Practitioner Family; Referring Provider Nurse Practitioner Family; Visit Provider Nurse Practitioner Family
DX: S00.83XA Contusion of other part of head, initial encounter (principal); W19.XXXA Unspecified fall, initial encounter
CPT/HCPCS: 70260